=== PATIENT | female | born 1970 | race Caucasian/White ===

== ENCOUNTER 2017-06-24 16:28 | Inpatient (IN) | payer OTHER, MEDICARE ==
[~2017-06-24] VITALS: Ht 154.9 cm; Wt 61.7 kg
[2017-06-24 19:02] LABS: ABSOLUTE BASOPHIL COUNT 0.1 /CUMM (0.0-0.2); ABSOLUTE EOSINOPHIL COUNT 0.1 /CUMM (0.0-0.7); ABSOLUTE GRANULOCYTE CT 7.6 /CUMM (1.4-6.5); ABSOLUTE LYMPH COUNT 2.1 /CUMM (1.2-3.4); ABSOLUTE MONOCYTE COUNT 0.7 /CUMM (0.10-0.60); BASOPHIL % 0.8 % (0.0-2.0); EOSINOPHIL % 1.1 % (0-5); MEAN CORPUSCULAR HGB 30.8 PG (27.0-31.0); MEAN CORPUSCULAR HGB CONC 33.8 G/DL (33.0-37.0); MEAN CORPUSCULAR VOLUME 91.1 FL (81.0-99.0); PLATELET COUNT 294 /CUMM (130-400); RED BLOOD CELL CT 4.61 /CUMM (4.20-5.40); WHITE BLOOD CELL COUNT 10.6 /CUMM (4.8-10.8)
--- NOTE | 2017-06-24 20:43 | ED GENERAL ADULT ---
History of Present Illness General Chief Complaint: General Adult Stated Complaint: PT WAS SENT IN BY FOR [facility] AMS AND OTHER Source: patient, family (AUNT) Exam Limitations: no limitations Vital Signs & Intake/Output Vital Signs & Intake/Output Vital Signs Date Time Temp Pulse Resp B/P B/P Pulse O2 O2 Flow FiO2 Mean Ox Delivery Rate 06/25 1507 98.6 93 15 104/56 97 Room Air Room Air 06/25 1122 98.5 92 20 92/62 97 Room Air 06/25 0831 97.4 75 20 135/90 96 Room Air 06/25 0616 98.3 74 18 112/73 98 Room Air 06/25 0121 98.5 72 20 115/68 97 Room Air 06/24 2309 98 Room Air 06/24 1855 98.2 82 18 121/81 98 06/24 1704 98.4 94 18 137/85 951 Room Air ED Intake and Output 06/25 0000 06/24 1200 Intake Total 0 Output Total Balance 0 Intake, Oral 0 Patient 140 lb Weight Weight Reported by Patient Measurement Method Triage Note: SENT BY ENDOCRINE OFFICE FOR CHANGE IN MENTAL STATUS. STATES, "I CAN'T GET MY WORDS TOGETHER". "IM ADDICTED TO MORPHINE AND VALIUM". STATES SHE HAS CHRONIC BACK PAIN AND ADRENAL INSUFFICIENCY. AUNT WITH PT. VERY VAGUE ANSWERING QUESTIONS. Triage Nurses Notes Reviewed? yes Onset: Abrupt Duration: day(s): (1), changing over time, continues in ED Timing: recent history Injury Environment: home Severity: moderate, severe No Modifying Factors: none LMP (ages 10-50): unknown : No Patient currently breastfeeds: No HPI: 46-year-old female past medical history of adrenal insufficiency, hypothyroidism , opioid dependence, benzodiazepine dependence, chronic pain, chronic fatigue syndrome presents for evaluation of polysubstance use and altered mental status. Patient is requesting detox from benzodiazepines and opioids. She states that she has been prescribed these medications for chronic pain for years but she feels that she needs to stop them. She was seen at [facility] and [facility] but was discharged without any follow-up care according to her. Patient's aunt reports that today patient was very "out of it". She was lethargic and not responding to questions appropriately and she made comments that she wanted to hurt herself. No specific plan. Also patient's manager advanced notes that she was also not responding to questions appropriately and appeared very lethargic. SHE denies any suicidal or homicidal ideation. She states she has not overdosed on her medications. No hallucinations she's been taking her medications as directed. (Sandro Ferrara) Allergies Coded Allergies: Penicillins (Intermediate, RASH 06/25/17) Reconcile Medications Diazepam 10 MG TABLET 1 TAB PO TID ANXIETY (Reported) Duloxetine HCl 60 MG CAPSULE.DR 1 CAP PO DAILY MENTAL HEALTH (Reported) Hydrocortisone 10 MG TABLET 2 TAB PO DAILY UNKNOWN (Reported) Hydrocortisone 10 MG TABLET 1 TAB PO 1600 UNKNOWN (Reported) Levothyroxine Sodium 125 MCG TABLET 1 TAB PO DAILY AC THYROID (Reported) Methylphenidate HCl (Methylphenidate ER) 54 MG TAB.ER.24 1 TAB PO QAM MENTAL HEALTH (Reported) Morphine Sulfate (Morphine Sulfate ER) 30 MG TABLET.ER 1 TAB PO TID PAIN ( Reported) Trazodone HCl 100 MG TABLET 1 TAB PO QPM SLEEP (Reported) (Irina VILLA,Aj Powell) Past History Travel History Traveled to [place] past 21 day No Medical History Any Pertinent Medical History? see below for history Musculoskeletal: degen joint disease Psychiatric: opioid dependence Endocrine: adrenal insufficiency Surgical History Surgical History: non-contributory Psychosocial History What is your primary language Estonian Tobacco Use: Current Daily Use Daily Tobacco Use Amount/Type: => 5 Cigarettes daily ETOH Use: denies use Family History Hx Contributory? No (Sandro Ferrara) Review of Systems Review of Systems Constitutional: Reports: no symptoms. EENTM: Reports: no symptoms. Respiratory: Reports: no symptoms. Cardiovascular: Reports: no symptoms. GI: Reports: no symptoms. Genitourinary: Reports: no symptoms. Musculoskeletal: Reports: no symptoms. Skin: Reports: no symptoms. Neurological/Psychological: Reports: see HPI, anxiety, depressed, emotional problems. Hematologic/Endocrine: Reports: no symptoms. Immunologic/Allergic: Reports: no symptoms. All Other Systems: Reviewed and Negative (Sandro Ferrara) Physical Exam Physical Exam General Appearance: well developed/nourished, no apparent distress, alert, awake , lethargic, mild distress Head: atraumatic, normal appearance Eyes: Bilateral: normal appearance, PERRL, EOMI. Ears, Nose, Throat: normal pharynx, normal ENT inspection, hearing grossly normal Neck: normal inspection, supple, full range of motion Respiratory: normal breath sounds, chest non-tender, no respiratory distress, lungs clear Cardiovascular: regular rate/rhythm, normal peripheral pulses Peripheral Pulses: 2+ radial (R), 2+ radial (L) Gastrointestinal: soft, non-tender Back: normal inspection, normal range of motion, no vertebral tenderness Extremities: normal inspection, normal range of motion, no edema Neurologic/Psych: no motor/sensory deficits, awake, alert, oriented x 3, normal gait, normal mood/affect Skin: intact, normal color, warm/dry Lymphatic: no anterior cervical arcadio Core Measures ACS in differential dx? No CVA/TIA Diagnosis: No Sepsis Present: No Sepsis Focused Exam Completed? No (Shawn BAEZA,Sandro) Progress Differential Diagnoses I considered the following diagnoses in my evaluation of the patient: [Drug intoxication, drug withdrawal, medication side effects, sepsis, electrolyte abnormality, intracranial mass, intracranial hemorrhage, CVA, TIA, seizure disorder, adrenal insufficiency, hypothyroidism] Plan of Care: Orders Procedure Date/time Status Regular Diet 06/25 B Active Admit to inpatient psych 06/25 1543 Active Continuous Observation Monitor 06/24 2213 Active ED CRISIS PSYCH CONSULT 06/24 2213 Active Add-on Test (ER Only) 06/24 2132 Active TSH REFLEX 06/24 1849 Complete URINE DRUG SCREEN FOR ER ONLY 06/24 1702 Complete URINALYSIS 06/24 1702 Complete TROPONIN LEVEL 06/24 1702 Complete ETHANOL 06/24 1702 Complete COMPREHENSIVE METABOLIC PANEL 06/24 1702 Complete CBC WITHOUT DIFFERENTIAL 06/24 1702 Complete Current Medications Sig/Ras Start time Last Medication Dose Stop Time Status Admin Hydrocortisone 10 MG QPM 06/25 2200 UNVr (Hydrocortisone) Trazodone HCl 100 MG QPM 06/25 2200 UNVr (Desyrel) Diazepam 10 MG TID 06/25 1000 UNVr (Valium) Duloxetine HCl 60 MG DAILY 06/25 0900 AC 06/25 (Cymbalta) 1136 Hydrocortisone 20 MG DAILY 06/25 0900 AC 06/25 (Hydrocortisone) 1136 Levothyroxine Sodium 0.125 MG DAILY AC 06/25 0700 UNVr 06/25 (Synthroid) 0747 Laboratory Tests 06/24/172: Urine Opiates Screen > 4000.00 H, Methadone Screen 44, Barbiturate Screen < 60, Ur Phencyclidine Scrn < 6.00, Amphetamines Screen < 100, U Benzodiazepines Scrn > 800 H, Urine Cocaine Screen < 50, Urine Cannabis Screen < 5.00, Urine Color YEL, Urine Clarity CLEAR, Urine pH 6.5, Ur Specific [place] 1.020, Urine Protein NEG, Urine Ketones 15 H, Urine Nitrite NEG, Urine Bilirubin NEG, Urine Urobilinogen 0.2, Ur Leukocyte Esterase NEG, Ur Microscopic EXAM NOT REQUIRED, Urine Hemoglobin NEG, Urine Glucose NEG 06/24/17 1849: Anion Gap 11, Estimated GFR > 60, BUN/Creatinine Ratio 26.7 H, Glucose 101 H, Calcium 9.6, Total Bilirubin 0.4, AST 16, ALT 27, Alkaline Phosphatase 71, Troponin I < 0.01, Total Protein 7.0, Albumin 4.3, Globulin 2.7, Albumin/ Globulin Ratio 1.6, TSH &T3 &Free T4 Intrp 1.220, CBC w Diff NO MAN DIFF REQ, RBC 4.61, MCV 91.1, MCH 30.8, MCHC 33.8, RDW 13.0, MPV 8.0, Gran % 71.0, Lymphocytes % 20.2 L, Monocytes % 6.9, Eosinophils % 1.1, Basophils % 0.8, Absolute Granulocytes 7.6 H, Absolute Lymphocytes 2.1, Absolute Monocytes 0.7 H, Absolute Eosinophils 0.1, Absolute Basophils 0.1, Serum Alcohol < 10.0 Patient seen and evaluated. She is here requesting detox of opioids and benzos. On initial evaluation she appears lethargic and tearful requesting help. She does deny suicidal or homicidal ideation. Spoke with patient's aunts who reports that she made comments saying that she wanted to end her life and that she was depressed. Patient denies these comments. Spoke with Dr. Gandhi from endocrine's office sent her over. She reported that she was very lethargic out of it was not answering questions appropriately. We'll check basic labs including drug screen chest x-ray CT scan of the brain. Blood work is within normal limits. Urine drug screen shows high levels of opioids and benzodiazepines. As patient has been here being monitored she is starting to wake up and is alert and oriented 3 now. She is answering questions appropriately. Suspect the patient initially was intoxicated. She denies any suicidal or homicidal ideation however her aunt states that she did make these threats. Patient will be held over to see crisis. Medications ordered other than morphine. Signed out to Dr. Cast pending crisis. Diagnostic Imaging: Viewed by Me: CT Scan. Discussed w/RAD: CT Scan. Radiology Impression: ATIENT: MAK PONCE PRESENT AGE: 46 PATIENT ACCOUNT NO: [id number] : 68 LOCATION: ER ORDERING PHYSICIAN: Sandro BAEZA SERVICE DATE: 06/24/17 EXAM TYPE: CAT - CT HEAD WO IV CONTRAST EXAMINATION: CT HEAD WITHOUT CONTRAST CLINICAL INFORMATION: Altered mental status. COMPARISON: None TECHNIQUE: Contiguous axial imaging was performed from the skull base to vertex without intravenous administration of contrast. DLP: 621 mGy-cm FINDINGS: There is no evidence of acute intracranial hemorrhage or territorial infarction. No abnormal mass effect or midline shift is seen. Hartman to white matter differentiation is well preserved. No extra-axial fluid collections are identified. The ventricles are normal in size. There is no abnormal attenuation within the brain parenchyma. The osseous structures and soft tissues are normal. The mastoid air cells and visualized portions of the paranasal sinuses are well aerated. IMPRESSION: No acute intracranial pathology. DICTATED BY: Kermit Kendrick MD DATE/TIME DICTATED:06/24/172116 LYE TREATER:CROWELL DATE/TIME TRANSCRIBED:06/24/172116 CONFIDENTIAL, DO NOT COPY WITHOUT APPROPRIATE AUTHORIZATION. CXR Impression: PATIENT: MAK PONCE PRESENT AGE: 46 PATIENT ACCOUNT NO: [id number] : 68 LOCATION: ER ORDERING PHYSICIAN: Sandro BAEZA SERVICE DATE: 06/24/17 EXAM TYPE: RAD - XRY-CHEST XRAY, TWO VIEWS EXAMINATION: XR CHEST CLINICAL INFORMATION: Shortness of breath. Altered mental status. COMPARISON: None TECHNIQUE: 2 views of the chest were obtained. FINDINGS: No significant abnormality is noted involving the heart, lungs, mediastinum, bony thorax or soft tissues. IMPRESSION: Unremarkable examination. DICTATED BY: Parveen Lopez MD DATE/TIME DICTATED:06/24/172211 LYE TREATER:RADEmilianaCROWELL DATE/TIME TRANSCRIBED:06/24/172211 CONFIDENTIAL, DO NOT COPY WITHOUT APPROPRIATE AUTHORIZATION. <Electronically signed in Other Vendor System> Initial ED EKG: none (Sandro Ferrara) Differential Diagnoses I considered the following diagnoses in my evaluation of the patient: Hand-Off Endorsed To: Aj Arevalo MD Endorsed Time: 0700 Pending: consult (Serene VILLA,Moises Hawkins) Differential Diagnoses I considered the following diagnoses in my evaluation of the patient: Comments: 06/25/2017 3:43:49 PM patient signed out to me by Dr. Cast at shift [employer] exchange administrator. Patient will be admitted to inpatient psychiatry. (Aj Arevalo MD) Departure Departure Disposition: STILL A PATIENT Condition: Stable Clinical Impression Primary Impression: Drug intoxication Qualifiers: Complication of substance-induced condition: uncomplicated Qualified Code: F19.920 - Other psychoactive substance use, unspecified with intoxication, uncomplicated Secondary Impressions: Suicidal ideation Referrals: Tony Wei MD (PCP/Family) Departure Forms: Customer Survey General Discharge Information (Sandro Ferrara) PA/CHEMICAL ETCH OPERATOR Co-Sign Statement Statement: ED Attending supervision documentation- [] I saw and evaluated the patient. I have also reviewed all the pertinent lab results and diagnostic results. I agree with the findings and the plan of care as documented in the PA's/CHEMICAL ETCH OPERATOR's documentation. [X] I have reviewed the ED Record and agree with the PA's/CHEMICAL ETCH OPERATOR's documentation. [] Additions or exceptions (if any) to the PAs/CHEMICAL ETCH OPERATOR's note and plan are summarized below: [] (Serene VILLA,Moises Hawkins) Psych Admission Note Psychiatric Admission: I have seen and evaluated MAK PONCE. I have also reviewed all the pertinent lab results and diagnostic results. MAK PONCE will be admitted to our inpatient Psychiatric unit for treatment and care. (Aj Arevalo MD) Critical Care Note Critical Care Note Critical Care Time: non-applicable (Sandro Ferrara)
--- NOTE | 2017-06-24 21:24 | CT SCAN REPORT ---
EXAMINATION: CT HEAD WITHOUT CONTRAST CLINICAL INFORMATION: Altered mental status. COMPARISON: None TECHNIQUE: Contiguous axial imaging was performed from the skull base to vertex without intravenous administration of contrast. DLP: 621 mGy-cm FINDINGS: There is no evidence of acute intracranial hemorrhage or territorial infarction. No abnormal mass effect or midline shift is seen. Hartman to white matter differentiation is well preserved. No extra-axial fluid collections are identified. The ventricles are normal in size. There is no abnormal attenuation within the brain parenchyma. The osseous structures and soft tissues are normal. The mastoid air cells and visualized portions of the paranasal sinuses are well aerated. IMPRESSION: No acute intracranial pathology.
--- NOTE | 2017-06-24 22:16 | RADIOLOGY REPORT ---
EXAMINATION: XR CHEST CLINICAL INFORMATION: Shortness of breath. Altered mental status. COMPARISON: None TECHNIQUE: 2 views of the chest were obtained. FINDINGS: No significant abnormality is noted involving the heart, lungs, mediastinum, bony thorax or soft tissues. IMPRESSION: Unremarkable examination.
[2017-06-25] MEDS ORDERED: DULOXETINE HCL60 MG PO (08:24)
[2017-06-25] MEDS ORDERED: DIAZEPAM10 M1 PO (08:25)
[2017-06-25] MEDS ORDERED: TRAZODONE HCL100 M1 PO (08:25)
[2017-06-25] MEDS ORDERED: METHYLPHENIDATE54 M2 PO (08:25)
[2017-06-25] MEDS ORDERED: HYDROCORTISONE10 M2 PO ×2 (08:25→08:26)
[2017-06-25] MEDS ORDERED: MORPHINE SULFAT30 M3 PO (08:25)
[2017-06-25] MEDS ORDERED: LEVOTHYROXINE125 MCG PO (08:26)
--- NOTE | 2017-06-25 13:27 | ED PSYCH CRISIS CONSULTATION ---
Crisis Consult Basic Assessment Date of Consult: 06/25/17 Responsible Person/Accompanied By: Rosa Elena Vick, aunt Insurance Authorization: Insurance #1: Insurance name: MEDICARE A Phone number: Policy number: [id number] Group number: Authorization number: ED Provider: Patient's ED Provider: Sandro Ferrara Primary Care Physician: Patient's PCP: Tony Wei MD PCP's Current Psychiatrist: Sierra Barnhart MD Chief Complaint: Psychiatric Related Lethargic/depressed Present Illness: Patient is a 46 year old female, who was referred to [facility] by Mila who works with Dr. Gottlieb. When patient was seen for her appointment yesterday afternoon, patient was so lethargic that her aswers were unclear, and patient was unable to move from from one chair to another and required the help of several people. Patient reportedly had made some suicidal statements per patient's maternal aunt, who has been a major support for patient following the of patient's father and, now, patient's mother has been diagnosed with Alzheimer's and is not able to assist patient at all: in fact, patient's mother may need assistance from her mother, and it is doubtful that patient wou Patient's Address: [address] [place] [address] Other Phone Number: Who Do You Live With? Mother Family/Informants Interviewed: Rosa Elena Vick, aunt, Conner Vick. cousin Allergies - Coded Allergies: Penicillins (Intermediate, RASH 06/25/17) Current Medications - Scheduled Medications Diazepam 10 MG TABLET 1 TAB PO TID ANXIETY #90 (Reported) Entered as Reported by Alfredo Argueta on 06/25/17 0825 Duloxetine HCl 60 MG CAPSULE. 1 CAP PO DAILY MENTAL HEALTH #30 (Reported) Entered as Reported by Alfredo Argueta on 06/25/17 0824 Hydrocortisone 10 MG TABLET 2 TAB PO DAILY UNKNOWN #100 (Reported) Entered as Reported by Alfredo Argueta on 06/25/17 0825 Hydrocortisone 10 MG TABLET 1 TAB PO 1600 UNKNOWN (Reported) Entered as Reported by Aflredo Argueta on 06/25/17 0826 Levothyroxine Sodium 125 MCG TABLET 1 TAB PO DAILY AC THYROID #90 (Reported) Entered as Reported by Alfredo Argueta on 06/25/17 0826 Methylphenidate HCl (Methylphenidate ER) 54 MG TAB.ER.24 1 TAB PO QAM MENTAL HEALTH #30 (Reported) Entered as Reported by Alfredo Argueta on 06/25/17 0825 Morphine Sulfate (Morphine Sulfate ER) 30 MG TABLET.ER 1 TAB PO TID PAIN #90 (Reported) Entered as Reported by Alfredo Argueta on 06/25/17 0825 Trazodone HCl 100 MG TABLET 1 TAB PO QPM SLEEP #30 (Reported) Entered as Reported by Alfredo Argueta on 06/25/17824 Laboratory Results: Laboratory Tests 06/24/172031: Urine Opiates Screen > 4000.00 H, Methadone Screen 44, Barbiturate Screen < 60, Ur Phencyclidine Scrn < 6.00, Amphetamines Screen < 100, U Benzodiazepines Scrn > 800 H, Urine Cocaine Screen < 50, Urine Cannabis Screen < 5.00, Urine Color YEL, Urine Clarity CLEAR, Urine pH 6.5, Ur Specific [place] 1.020, Urine Protein NEG, Urine Ketones 15 H, Urine Nitrite NEG, Urine Bilirubin NEG, Urine Urobilinogen 0.2, Ur Leukocyte Esterase NEG, Ur Microscopic EXAM NOT REQUIRED, Urine Hemoglobin NEG, Urine Glucose NEG 06/24/17 1849: Anion Gap 11, Estimated GFR > 60, BUN/Creatinine Ratio 26.7 H, Glucose 101 H, Calcium 9.6, Total Bilirubin 0.4, AST 16, ALT 27, Alkaline Phosphatase 71, Troponin I < 0.01, Total Protein 7.0, Albumin 4.3, Globulin 2.7, Albumin/ Globulin Ratio 1.6, TSH &T3 &Free T4 Intrp 1.220, CBC w Diff NO MAN DIFF REQ, RBC 4.61, MCV 91.1, MCH 30.8, MCHC 33.8, RDW 13.0, MPV 8.0, Gran % 71.0, Lymphocytes % 20.2 L, Monocytes % 6.9, Eosinophils % 1.1, Basophils % 0.8, Absolute Granulocytes 7.6 H, Absolute Lymphocytes 2.1, Absolute Monocytes 0.7 H, Absolute Eosinophils 0.1, Absolute Basophils 0.1, Serum Alcohol < 10.0 Past History Past Medical History Musculoskeletal: degen joint disease Psychiatric: opioid dependence Endocrine: adrenal insufficiency Past Surgical History Surgical History: non-contributory Psychosocial History Strengths/Capabilities: patient has some family support has own apartment with mother states wants to get better Physical Limitations (Interventions): Patient has chronic back pain and renal insufficiecy Psychiatric Treatment History Psych Treatment Psychiatric Treatment Yes Inpatient Treatment Yes Outpatient Treatment Yes Location of Treatment Hosp in [place] in 1997; [facility] Reason for Treatment depression Dates of Treatment 1997 Response to Treatment fair to good Diagnosis by History: Depression Learning Disabled Substance Use/Abuse History Drug Use/Abuse Substances Used/Abused Yes Substance Used/Abused Benzodiazepines First Use 15 years ago Last Used today (prescribed) How much used/taken 10 m.g. 3x day How often treee times daily For how long 15 years Route of use p.o. Substance Abuse Treatment Substance Abuse Treatment Past Substance Abuse [place] No Current Mental Status Mental Status Orientation: Person, Place, Situation Affect: Blunted, Depressed, Sad Speech: Poverty, Pressured, Soft Neuro-vegetative: Concentration Poor, Energy Decreased Appearance Appearance- Dress/Hygiene: appears to be older than age disheveled in distress Behaviors Thought Process: WNL Thought Content: WNL Memory: WNL Insight: Fair SI/HI Risk Assessment Past Suicidal Ideation/Attempts Yes Current Suicidal Ideation/Att Yes Past Homicidal Ideation/Att: No Current Homicidal Ideation/Attempts No Degree of Intent: Thoughts/No Intent Danger To: Self Risk Factors: access to lethal means, chronic/serious med cond., high anxiety/ distress, history of suicide atmpts, SA/MH hospitalized, substance abuse, limited support Lethality Ratin PTSD Checklist PTSD Done? pt unable to participate ED Management Sitter: Yes Restraints: No DSM5/PS Stressors/Medical Prob Diagnosis' (DSM 5, Stressors, Medical): Major Deptressive Disorder, severe, recurrent Opiod Dependence (prescribed), severe Benzodiazapam Dependence, (prescribed), severe Unspecified Anxiety D/O F 41.1 ADHD Learning Disabled Current GAF: 22 Comments: Patient has lived in very confined, protective environment, but father's recent and mother's Alzheimer's have been very difficult. Departure Disposition Psych Medical Clearance Date: 06/25/17 Medically Cleared at: 1000 Time Started: 1110 Time Ended: 1215 Psychiatrist Consulted: SARABJIT Date Disposition Established: 06/25/17 Time Disposition Established: 1330 Plan for Disposition - Modality: Inpatient Psychiatry Facility: [facility] Follow-up Appt Date: 06/25/17 Rationale for Disposition: PATIENT AT RISK TO SELF. Has made suicidal statements, and is overwhelmed. States wants to decrease medications that make her more sedated Type of IP Admission: Voluntary Referrals Tony Wei MD (PCP/Family)
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
[2017-06-25 16:40] VITALS: BP 105/72
[2017-06-25 19:48] VITALS: BP 111/86
[2017-06-25 22:49] VITALS: BP 122/81
[2017-06-26 08:56] VITALS: BP 109/69
--- NOTE | 2017-06-26 11:31 | CPS PROVIDER INIT ASMT PSYCH ---
Psychiatric Admission Dentistry Professor's Note Reviewed: Yes Patient Seen and Examined: Yes Identifying Information: The patient is a 46-year-old white female Chief Complaint: The patient was referred to the emergency department by the office of Dr. bose, allegedly a maternal aunt reported that the patient had made some suicidal statements Reaction to Hospitalization: The patient was admitted voluntarily History of Present Illness Onset of Illness: The patient reported that she has been in treatment with Dr. Barnhart for several years. The patient reported that whether there were some recent changes in her medications. The patient had an appointment the same day that she was transferred to the emergency department with her primary care physician's office she reportedly was described as being lethargic and giving unclear answers and unable to move from one chair to another requiring the help of several people in the waiting area. And there were some allegations made that the patient made suicidal statements. The patient denied that she reported that her maternal aunt told her that is the only way to get help as to say that her suicidal. Maternal aunt is in her early 80s but she used to be a nurse in the past Circumstances Leading to Admission: The patient was transferred from the primary care physician's office to the ED for concerns about her lethargy unclear answers and some behaviors that were of concern. In addition to allegations by the maternal aunt that the patient made suicidal statements. Problem(s) Justifying Need for Admission: Allegations of suicidal statements, the patient denied that Past Psychiatric History Past Diagnosis(es)- if any: Patient has history of being diagnosed with major depressive disorder and anxiety disorder Past Precipitating Factors- if any: This was the patient's first inpatient psychiatric admission. Looks like the precipitating factors may be her numerous physical health issues and significant psychosocial stress at home , living with mother who has Alzheimer's disease - Include inpatient and outpatient treatment Treatment History: Patient has been in treatment with Dr. Barnhart in her private practice Patient denied history of previous inpatient psychiatric admissions and denied history of suicide attempts History of Suicide Attempts or Gestures Patient denied history of suicide attempts Substance Abuse History: The patient denied abusing her prescribed medications she seems to be reliable Allergies: Coded Allergies: Penicillins (Intermediate, RASH 06/25/17) Home Med List: Patient was on Valium 10 mg 3 times a day, Cymbalta 60 mg a day Morphine sulfate 30 mg 3 times a day - Include any medical condition(s) that may - impact the patient's recovery/remission Past History Medical History Neurological: NEUROPATHY EENT: NONE Cardiovascular: MITRAL VALVE PROLAPSE Respiratory: NONE Gastrointestinal: diverticulitis Hepatic: NONE Renal: urinary incontinence Musculoskeletal: chronic back pain, degen joint disease Psychiatric: anxiety, depression, opioid dependence, ADHD Endocrine: adrenal insufficiency, hypothyroidism, AMANDA'S DISEASE Blood Disorders: anemia Cancer(s): NONE 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/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: endometriosis History of MRSA: No History of VRE: No History of CDIFF: No Isolation History: Standard Surgical History Surgical History: non-contributory Psychiatric Family/Social Hx Family History Psychiatric Illness: The patient is adopted, however she reported that as far as she knows, her biological parents did not have psychiatric illnesses Substance Use: As far as she knows her biological parents did not have alcohol or substance abuse disorders Suicides: As far as she knows there were no suicides among her biological relatives Other Family History: Adopted Social History Living Situation: Lives with mother Significant Relationships (family/friends): Mother and aunt 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 - #1 Recognizing dangerous situations. - #2 Coping Skills. - #3 Basic information about quitting. Status of Tobacco Cessation Counseling: #1, #2 AND #3 Completed Cessation Med Status Nicotine Gum Ordered Alcohol Screening - ETOH screen POS if BAL >=80 or Audit-C>= M4/F3 Audit-C Score from Diag Assess: 1 Blood Alcohol Level: Laboratory Tests 06/24 1848 Toxicology Serum Alcohol (<10 MG/DL) < 10.0 Alcohol Use Screening Results: Neg per Audit C &/or BAL - If ETOH counseling indicated - the following topics are required. - #1 Express concern about the patient's - drinking at unhealthy levels, include informing - of national norms for moderate drinking: - men <= 14 drinks/week, max 4 drinks/occasion - women <= 7 drinks/week, max 3 drinks/occasion - #2 Providing feedback, including linking alcohol to - negative physical effects (liver injury, hypertension) - negative emotional effects (relationship problems and - depression) - negative occupational consequences (reduced work - performance) - #3 Advising the patient to abstain from alcohol or - to drink below national norms for moderate drinking - (as listed above). Status of ETOH Use Counseling: N/A B/C NO ETOH Use Metabolic Screening - Screen if on a Neuroleptic Medication - Metabolic screening should include: - Blood Pressure, BMI, Glucose or Hgb A1c, & a - Lipid profile from within the past 365 days. Metabolic Screening ([X]) Not Applicable, patient not on a neuroleptic. Exam and Plan Mental Status Examination Ambulation Status: The patient was lying in bed she reported that she has back ache Appearance: Unremarkable appearance Attitude towards examiner: Patient was calm and cooperative pleasant and friendly Psychomotor activity: Normal psychomotor activity Behavior: No abnormal behaviors Quality of speech: Normal speech, not pressured, not slurred Affect: Good range of affect Mood: He reported that she has been feeling depressed lately Suicidal Ideation: She denied that she was having thoughts of suicide Homicidal Ideation: She denied thoughts of violence or homicide Hallucinations: She denied hallucinations Paranoid/Delusional Material: She denied feeling paranoid, there were no delusions Difficulties with thought organization: There were no difficulties with thought organization Insight: Seems to have some insight Judgment: Good judgment Orientation: She was alert and oriented to time, place, and person. Cognition: She showed reasonable attention and concentration and information processing Memory Function: No deficits in her memory functions Estimate of intellectual functioning: Average Assets/Strengths Patient Identified Assets/Strengths: The patient is likable and honest Impression/Plan Impression and Plan: 46-year-old white female who was admitted because her aunt alleges that she was having thoughts of suicide. The patient denied that she was having thoughts of suicide but reported that her aunt told her that is the only way to get help. The patient was referred by her primary care physician's office because of concerns about her behavior - Include all active medical diagnosis that require tx DSM 5 Diagnosis(es): Major depressive disorder, recurrent, severe Unspecified anxiety disorder ADHD - Initial Tx Plan for Active Psych & Medical Conditions Treatment Plan: Inpatient psychiatric care with safety checks every 15 minutes Resume diazepam but reduce dose to 5 mg twice during the day and and 15 mg at bedtime Resume morphine sulfate but reduce dose to 50 mg 4 times a day Reduce Cymbalta to 40 mg daily and start Zoloft 50 mg daily Nursing assessments, vital signs, and patient education and Group therapy and milieu therapy and activity therapy Biopsychosocial assessment, collateral information, and aftercare planning Psychiatrist to evaluate patient's mental status daily and monitor medications daily - Factors that would help patient function - in a less restrictive setting. Factors: The patient will be discharged once she has 2 consecutive days without thoughts of suicide
[2017-06-26 12:02] VITALS: BP 122/78
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
--- NOTE | 2017-06-26 14:49 | History & Physical ---
General Information and HPI MD Statement: I have seen and personally examined MAK PONCE and documented this H&P. The patient is a 46 year old F who presented with a patient stated chief complaint of altered mental status/polysubstance abuse. Source of Information: patient, old records Exam Limitations: clinical condition History of Present Illness: The patient is a 46 yo female with h/o hypothyroidism, chronic fatigue syndrome, chronic back pain, adrenal insufficiency, opioid/benzo dependence & polysubstance abuse who presented in the [place] ED with altered mental status requesting detox from benzos & opioids. Her aunt stated that she was "out of it ". She had also been seen at both [place] and [facility]. She denied any suicidal ideations. At the time of my exam she had already met with psychiatry and social work and was concerned about receiving her hydrocortisone (was ordered). Allergies/Medications Allergies: Coded Allergies: Penicillins (Intermediate, RASH 06/25/17) Home Med list Diazepam 10 MG TABLET 1 TAB PO TID ANXIETY (Reported) Duloxetine HCl 60 MG CAPSULE.DR 1 CAP PO DAILY MENTAL HEALTH (Reported) Hydrocortisone 10 MG TABLET 2 TAB PO DAILY UNKNOWN (Reported) Hydrocortisone 10 MG TABLET 1 TAB PO 1600 UNKNOWN (Reported) Levothyroxine Sodium 125 MCG TABLET 1 TAB PO DAILY AC THYROID (Reported) Methylphenidate HCl (Methylphenidate ER) 54 MG TAB.ER.24 1 TAB PO QAM MENTAL HEALTH (Reported) Morphine Sulfate (Morphine Sulfate ER) 30 MG TABLET.ER 1 TAB PO TID PAIN ( Reported) Trazodone HCl 100 MG TABLET 1 TAB PO QPM SLEEP (Reported) Compliance With Home Meds: GOOD Past History Travel History Traveled to [place] past 21 day No Medical History Neurological: NONE, NEUROPATHY EENT: NONE Cardiovascular: NONE, MITRAL VALVE PROLAPSE Respiratory: NONE Gastrointestinal: diverticulitis Hepatic: NONE Renal: NONE, urinary incontinence Musculoskeletal: chronic back pain, degen joint disease Psychiatric: anxiety, depression, opioid dependence, substance abuse (benzo), ADHD Endocrine: adrenal insufficiency, hypothyroidism, AMANDA'S DISEASE Blood Disorders: anemia Cancer(s): NONE 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 FATHER, . Psychosocial History Where do you live? Home Primary Language: Albanian Smoking Status: Current Everyday Smoker (1/2 PPD) ETOH Use: denies use Functional Ability ADLs Independent: dressing, eating, toileting, bathing. Ambulation: independent Employment History Employment Disability Review of Systems Review of Systems Constitutional: Reports: malaise. EENTM: Denies: no symptoms. Cardiovascular: Denies: no symptoms. Respiratory: Denies: no symptoms. GI: Denies: no symptoms. Genitourinary: Reports: no symptoms (PT DESCRIBES INCONTINENCE), urgency. Musculoskeletal: Reports: back pain, joint pain. Skin: Denies: no symptoms. Neurological/Psychological: Reports: anxiety, depressed, emotional problems. Hematologic/Endocrine: Denies: no symptoms. Immunologic/Allergic: Denies: no symptoms. Exam & Diagnostic Data Last 24 Hrs of Vital Signs/I&O Vital Signs Date Time Temp Pulse Resp B/P B/P Pulse O2 O2 Flow FiO2 Mean Ox Delivery Rate 06/26 1202 74 122/78 06/26 0856 97.2 84 109/69 06/25 2249 78 122/81 06/25 1948 99.0 88 111/86 06/25 1640 98.0 92 105/72 Intake & Output 06/26 1600 06/26 0800 06/26 0000 Intake Total Output Total Balance Patient 136 lb Weight Physical Exam General Appearance Alert, Oriented X3, Cooperative, No Acute Distress Skin No Rashes, No Breakdown, No Significant Lesion HEENT Atraumatic, PERRLA, EOMI, Mucous Membr. moist/pink Neck Supple, No JVD, No thryomegaly, +2 Carotid Pulse wo Bruit, No LAD Cardiovascular Regular Rate, Normal S1, Normal S2, No Murmurs, Gallops, Rubs Lungs Clear to Auscultation, Normal Air Movement Abdomen Normal Bowel Sounds, Soft, No Tenderness, No Hepatospenomegaly, No Masses Neurological Exam Findings: Normal Gait, Normal Speech, Strength at 5/5 X4 Ext, Normal Tone, Sensation Intact, Cranial Nerves 3-12 NL, Reflexes 2+ Cranial Nerves II through XII: INTACT Extremities No Clubbing, No Cyanosis, No Edema, Normal Pulses, No Tenderness/ Swelling Vascular Normal Pulses, Pulses Symmetrical Last 24 Hrs of Labs/Db: Laboratory Tests 06/24/172031: Urine Opiates Screen > 4000.00 H, Methadone Screen 44, Barbiturate Screen < 60, Ur Phencyclidine Scrn < 6.00, Amphetamines Screen < 100, U Benzodiazepines Scrn > 800 H, Urine Cocaine Screen < 50, Urine Cannabis Screen < 5.00, Urine Color YEL, Urine Clarity CLEAR, Urine pH 6.5, Ur Specific Rulo 1.020, Urine Protein NEG, Urine Ketones 15 H, Urine Nitrite NEG, Urine Bilirubin NEG, Urine Urobilinogen 0.2, Ur Leukocyte Esterase NEG, Ur Microscopic EXAM NOT REQUIRED, Urine Hemoglobin NEG, Urine Glucose NEG 06/24/17 184: Anion Gap 11, Estimated GFR > 60, BUN/Creatinine Ratio 26.7 H, Glucose 101 H, Calcium 9.6, Total Bilirubin 0.4, AST 16, ALT 27, Alkaline Phosphatase 71, Troponin I < 0.01, Total Protein 7.0, Albumin 4.3, Globulin 2.7, Albumin/ Globulin Ratio 1.6, TSH &T3 &Free T4 Intrp 1.220, CBC w Diff NO MAN DIFF REQ, RBC 4.61, MCV 91.1, MCH 30.8, MCHC 33.8, RDW 13.0, MPV 8.0, Gran % 71.0, Lymphocytes % 20.2 L, Monocytes % 6.9, Eosinophils % 1.1, Basophils % 0.8, Absolute Granulocytes 7.6 H, Absolute Lymphocytes 2.1, Absolute Monocytes 0.7 H, Absolute Eosinophils 0.1, Absolute Basophils 0.1, Serum Alcohol < 10.0 Assessment/Plan Assessment: Impression/Plan: #Altered Mental Status- in patient with h/o polysubstance abuse and chronic pain. At the time of my exam she was alert & oriented. She war requesting detox. Family stated her behavior was erratic. Plan: Admit to [facility]Psychiatry. Meds as per psychiatry. #Benzo/Opioid Dependence- patient requesting detox. Plan: As per psychiatry. #Adrenal Insufficiency- chronic. Plan: Continue Hydrocortisone 20 mg qam/10 mg qpm. #Chronic Pain- has been on opioids and benzos. Plan: Continue Duloxetine - patient wants taper of Morphine. #Hypothyroid- on Levothyroxine. Plan: Continue Levothyroxine. #Anxiety/Depression- related to condition. Plan: As per psychiatry. As Ranked By This Provider Problem List: 1. Drug intoxication Qualifiers Complication of substance-induced condition: uncomplicated Qualified Code: F19.920 - Other psychoactive substance use, unspecified with intoxication, uncomplicated 2. Opioid dependence 3. Benzodiazepine dependence 4. Chronic back pain 5. Adrenal insufficiency 6. Depression 7. Anxiety Miscellaneous Miscellaneous Documentation Attending Case Discussed With: Juanjose VILLA,Ezequiel Primary Care Physician: Tony Wei MD Patient sees these Specialists NONE Level of Patient Care: Lg Consults Needed: Consulting Physician: NONE Attending MD Review Statement Attending Statement Attending MD Statement: examined this patient, reviewed EMR data (avail), discussed with nursing, amended to note Attending Assessment/Plan: As above.
[2017-06-26 16:03] VITALS: BP 120/81
--- NOTE | 2017-06-26 16:26 | SOCIAL WORKER PROG NOTE PSYCH ---
Social Work Progress Note Progress Note This engineering technical writer met with patient. She stated that she came to the hospital because she was concerned about the potential for interactions between her medications. Patient stated that she had seen Dr. Barnhart and has an appointment on 07/07/17. She stated that she and Dr. Barnhart had discussed [facility] IOP, which she was willing to attend. Patient denied SI/HI/AH/HV. She appeared to be guarded, provided vague responses to questions. Patient was agreeable to a family meeting with her aunt , Rosa Elena Vick. This engineering technical writer contacted Ros aElena by phone and a family meeting has been scheduled for 06/29/17 at 11am.
[2017-06-26 20:07] VITALS: BP 103/79
[2017-06-27 07:52] VITALS: BP 114/78
[2017-06-27 12:04] VITALS: BP 107/67
--- NOTE | 2017-06-27 13:45 | CP SOUTH PROGRESS NOTE PSYCH ---
Psych (Inpt) Progress Note Progress Note Include the following elements, when applicable: Involvement in the active treatment of the patient with behavioral observations of the patient and the patient's response to the treatment. Review of the ongoing treatment process in the context of the treatment plan. Indication of how multi-disciplinary staff members are carrying out the treatment plan. Plans for future interventions and recommendations for revision of the treatment plan. Liaison with other physicians/providers. Progress Note: Stated that she has an appt with Dr. Barnhart on the and pain management on the to adjust her medications I explained to her that Zoloft was ordered and med changes were likely discussed on admission and she said Monica never heard of someone being on two antidepressants and I explained that sometimes this happens as an adjunct to treatment if one is not working sufficiently, and that sometimes it takes time to cross taper them because they take weeks to work. She stated that she would try the Zoloft prescribed for now. She was vague about reason for admission and recent sx, minimizing things, stating that she is where she needs to be at [facility] and needs to get discharged on Thursday. No recent suicidal statements or thoughts. She stated that she hopes to return to take care of her mother. Is not close with her aunt but is hopeful about the family meeting on Thursday. MSE: short woman, fair grooming, pleasant and cooperative. Mildly anxious and some vagueness/superficial statements in her response style. Speech is normal. Affect is full and reactive, mood is neutral. Thought process is concrete and linear. Thought content is void of delusional material. No evidence of thoughts to harm self/others, no hallucinations. Insight is fair and judgment is fair. Cognition is grossly intact. A: 46 year old woman admitted with questionable suicidal statements, from her PCPs office due to lethargy and delirium looking picture. She is on high dose pain medications for chronic pain, but her goal is to be tapered off of them. She denies any suicidal thoughts or statements, stating that she needs to return home. Rec: continue evaluation, needs few day period of clinical stability prior to discharge planning, appears to be doing better overall. Accepted Zoloft with some education.
[2017-06-27 15:39] VITALS: BP 102/70
--- NOTE | 2017-06-27 19:35 | PN- Att Addend ---
Attending Addendum Attending Brief Note S: The patient requested to speak with me regarding timing of her steroid dose. She usually takes Hydrocortisone 20 mg qam and 10 mg qpm at 4 pm (order was entered for later dosing for evening dose). A:#Adrenal Insufficiency- as above - timing off for doses ordered by admitting MD. Plan: Will correct timing of later dose.
[2017-06-27 19:55] VITALS: BP 122/81
[2017-06-28 08:06] VITALS: BP 117/79
--- NOTE | 2017-06-28 11:30 | CP SOUTH PROGRESS NOTE PSYCH ---
Psych (Inpt) Progress Note Progress Note Include the following elements, when applicable: Involvement in the active treatment of the patient with behavioral observations of the patient and the patient's response to the treatment. Review of the ongoing treatment process in the context of the treatment plan. Indication of how multi-disciplinary staff members are carrying out the treatment plan. Plans for future interventions and recommendations for revision of the treatment plan. Liaison with other physicians/providers. Progress Note: Stated that she is doing well, no complaints and has been eating and sleeping well. She stated that her medication is "where it needs to be" and has had no issues with the zoloft. Is hopeful to get discharged early in the week and clinically appears to be doing well. MSE: short woman, fair grooming, pleasant. She has no psychomotor changes. She is not anxious and is well realted. She has regular speech. Her affect is full and reactive. Mood is good. Her thinking is goal oriented. No evidence of delusional material. Denies thoughts to harm self/others, no hallucinations. Insight is fair and judgment is fair. Cognition is grossly intact. A: 46 year old woman admitted with questionable suicidal statements, from her PCPs office due to lethargy and delirium looking picture. She is on high dose pain medications for chronic pain, but her goal is to be tapered off of them. She denies any suicidal thoughts or statements, stating that she needs to return home and continues to stabilize. Rec: continue current plan of care.
[2017-06-28 11:56] VITALS: BP 117/68
[2017-06-28 15:35] VITALS: BP 108/65
[2017-06-28 19:05] VITALS: BP 111/75
[2017-06-29 07:43] VITALS: BP 99/74
[2017-06-29 11:38] VITALS: BP 123/73
--- NOTE | 2017-06-29 13:05 | CP SOUTH PROGRESS NOTE PSYCH ---
Psych (Inpt) Progress Note Progress Note I reviewed Dr. Mila Isaac MD's notes for 06/27 and 06/28 The patient's progress, treatment, and aftercare plans were reviewed and the treatment team meeting this morning Vital Signs Date Time Temp Pulse B/P B/P Pulse O2 O2 Flow FiO2 06/29 1138 78 123/73 06/29 0743 97.6 73 99/74 06/28 1905 98.7 74 111/75 06/28 1535 78 108/65 Mental status examination: The patient seemed to be in good spirits today. She reported that she feels much better. She denied feeling hopeless and denied thinking of suicide. She was alert oriented to time place and person. Stated that she is doing well, no complaints and has been eating and sleeping well. She stated that her medication is "where it needs to be" and has had no issues with the zoloft. Is hopeful to get discharged and clinically appears to be doing well. pleasant. She has no psychomotor changes. She is not anxious and is well realted. She has regular speech. Her affect is full and reactive. Mood is good. Her thinking is goal oriented. No evidence of delusional material. Denies thoughts to harm self/others, no hallucinations. Insight is fair and judgment is fair. Cognition is grossly intact. A: A 46 year old woman admitted with questionable suicidal statements, from her PCP medications for chronic pain, but her goal is to be tapered off of them. She denies any suicidal thoughts or statements, stating that she needs to return home and continues to stabilize. Treatment plan update: continue current plan of care. Family meeting tomorrow with possible discharge after the family meeting
[2017-06-29 15:46] VITALS: BP 119/72
--- NOTE | 2017-06-29 17:32 | SOCIAL WORKER PROG NOTE PSYCH ---
Social Work Progress Note Progress Note This typewriter assembler met with patient. She described her mood as "fine" and denied SI/HI /AH/VH. Patient expressed eagerness to discharge and was agreeable to attending [facility]. Patient was informed that this typewriter assembler would schedule an IOP intake appointment. Patient stated that she has an appointment with her pain management provider, Dr. Ku, on 07/08/17. She stated that she would contact her PCP after discharge to schedule an appointment with him, Dr. Peoples. Patient stated that she did not need any additional appointments/ referrals and was not interested in a visitng nurse. Patient was informed that the family meeting with her aunt and cousin were moved to tomorrow, 06/30/17, at 11am due to today's bad weather. Patient's aunt was informed of anticipated discharge for tomorrow. This typewriter assembler spoke with Raquel Garcia at [facility] and an intake has been scheduled for 06/30/17 at 2pm.
[2017-06-29 19:59] VITALS: BP 114/72
[2017-06-30 07:49] VITALS: BP 101/59
[2017-06-30 12:13] VITALS: BP 119/77
--- NOTE | 2017-06-30 13:16 | CP SOUTH PROGRESS NOTE PSYCH ---
Psych (Inpt) Progress Note Progress Note The patient's progress, treatment, and aftercare plans were reviewed and the treatment team meeting this morning Vital Signs Date Time Temp Pulse Resp B/P B/P Pulse O2 O2 Flow FiO2 Mean Ox Delivery Rate 06/30 1213 80 119/77 06/30 0749 98.9 76 101/59 06/29 1958 97.8 80 114/72 06/29 1546 81 119/72 Mental Status Examination: The patient seemed to be in good spirits today until we had the family meeting. He will on seem to be overbearing and a bit controlling, and somewhat intrusive. I feel that the patient was justified in feeling irritated during the family meeting She denied feeling hopeless and denied thinking of suicide. She was alert oriented to time, place, and person. Stated that she is doing well, no complaints and has been eating and sleeping well. She was pleasant. She has no psychomotor changes. She is not anxious and is well realted. She has regular speech. Her affect is full and reactive. Mood is good. Her thinking is goal oriented. No evidence of delusional material. Denies thoughts to harm self/others, no hallucinations. Insight is fair and judgment is fair. Cognition is grossly intact. A: A 46 year old woman admitted with questionable suicidal statements, from her PCP medications for chronic pain, but her goal is to be tapered off of them. She denies any suicidal thoughts or statements, stating that she needs to return home and continues to stabilize. Treatment plan update: Discharge home with plan to follow up with OPS at [facility]
--- NOTE | 2017-06-30 13:16 | DISCHARGE SUMMARY REPORT-PSYCH ---
Visit Information Visit Dates/Diagnosis' Admission Date: 06/25/17 Discharge Date: 06/30/17 Reason for Admission: Allegedly thoughts of suicide, the patient denied that Hospital Course Course Allergies: Coded Allergies: Penicillins (Intermediate, RASH 06/25/17) gluten (GI DISTURBANCE;HEADACHE 06/27/17) Discharge HBIPS - Tobacco Use Treatment Offered - EtOH/Drug Use D/O Treatment Offered Metabolic Screening - Screen if on a Neuroleptic Medication - Metabolic screening should include: - Blood Pressure, BMI, Glucose or Hgb A1c, & a - Lipid profile from within the past 365 days. Discharge Instructions General Discharge Information Referrals Ordered Referrals Provider Referral 06/30/17 For Groups: [[facility]] [facility] [address], [place] [phone] IOP intake appointment: Friday, June 30, 2017 at 2pm Provider Referral 07/01/17 For Groups: [Sm[facility]essation Group] [facility] [address] [phone] Group meets every other Thursday at 4pm Next group: 07/01/17, at 4pm
[2017-06-30] MEDS ORDERED: CYCLOBENZAPRINE10 M1 PO (13:30)
[2017-06-30] MEDS ORDERED: MORPHINE SULFAT15 M4 PO (13:31)
[2017-06-30] MEDS ORDERED: ZOLOFT50 M1 PO (13:33)
[2017-06-30] MEDS ORDERED: DULOXETINE HCL20 MG PO (13:33)
[2017-06-30] MEDS ORDERED: VALIUM5 M2 PO (13:35)
[2017-06-30] MEDS ORDERED: TRAZODONE HCL50 M1 PO (13:35)
--- NOTE | 2017-06-30 13:38 | Patient Discharge Instructions ---
Psych Discharge Inst General Discharge Information Reason for Admission: Allegedly thoughts of suicide, the patient denied that Psy Discharge Primary Diag+ MDD Unspecified Anxiety Disor Psy Discharge Secondary Diag+ Learning Disorder Summary Tests/Major Procedures Lab TSH &T3 &Free T4 Intrp 1.220 uIU/mL 06/24/17 1849 Studies Pending at DC: None Patient Instructions Contact Information Your Psychiatrist on [facility] was Ezequiel Sow MD * If you are experiencing an emergency related to this hospitalization, please call [phone] to contact the treating psychiatrist or the psychiatrist-on- call. * To Request a copy of your medical records, please contact the Medical Records Department at [phone]. * To request results of studies pending at the time of discharge, please call [phone]. * Continue your Medications until directed to stop by your Healthcare provider. General Medication Information Please continue to take your new medications and your continued home medications , unless otherwise indicated on your discharge medication list, or unless directed by your MD or CORPORATE COUNSEL to stop them. Special Instructions Diet Regular Activity Normal - Tobacco Use Treatment Offered Post DC Medications Offered: Refused Tob Medication Tx Post DC Tobacco Treatment Plan: Refused Tobacco Tx Pgm - EtOH/Drug Use D/O Treatment Offered Post DC Medications Offered: NA-No EtOH/Drug Use D/O Post DC EtOH/SubAbuse TX Plan: NA-No EtOH/Drug Use D/O Metabolic Screening ([X]) Not Applicable, patient not on a neuroleptic. Advance Directives Does the Patient have Medical Advance Directives No/Refused further info Does Pt have Psychiatric Advance Directives? No/Refused further info Does Patient have a Designated Surrogate Decision Maker: No Information About Psychiatric Advance Directives Provided? Refused Discharge Plan Post Hospital Treatment Plan: OPS
[2017-06-30 16:11] VITALS: BP 118/72
--- NOTE | 2017-06-30 18:14 | SOCIAL WORKER PROG NOTE PSYCH ---
Social Work Progress Note Progress Note Dr. Sow and this quality analyst/technical writer met with patient, her cousin, Sinan and her aunt, Rosa Elena, for a family meeting. Patient's family discussed the impact on the patient related to the of her father and her mother's illness in that her primary support system "crumbled." Conservatorship was discussed, to which patient was in agreement. Patient's cousin and aunt stated that they would explore voluntary conservatorship as an option. Discharge plans were also discussed. Family members expressed concern about the patient discharging home today due to her mother's home health services currently in transition to a new service and the tension between the patient and the current service. Patient maintained that she wants to discharge today and waiting until tomorrow is not an option. In regard to treatment, due to lack of transportation, patient and her family did not feel that IOP would be possible and was agreeable to [facility] for medication management and outpatient services.
== END 2017-06-30 18:42 | DRG 881 ==
LOC: ERH 16:28 → CP SOUTH 06-25 15:43 → ERHI 06-25 15:43 → CP SOUTH 06-25 16:10
PROVIDERS: Physician Assistant Medical
DX: F32.9 Major depressive disorder, single episode, unspecified (principal); F41.9 Anxiety disorder, unspecified; F81.9 Developmental disorder of scholastic skills, unspecified
CPT/HCPCS: 71046; 80307; 81003; G0480; J3360

== ENCOUNTER 2017-08-07 18:19 | Inpatient (IN) | payer OTHER, MEDICARE ==
[~2017-08-07] VITALS: Ht 154.9 cm; Wt 58.1 kg
[~2017-08-07 18:19] MED LIST: CYCLOBENZAPRINE10 M1 PO; DIAZEPAM10 M1 PO; DULOXETINE HCL20 MG PO; DULOXETINE HCL60 MG PO; HYDROCORTISONE10 M2 PO; LEVOTHYROXINE125 MCG PO; METHYLPHENIDATE54 M2 PO; MORPHINE SULFAT15 M4 PO; MORPHINE SULFAT30 M3 PO; TRAZODONE HCL100 M1 PO; TRAZODONE HCL50 M1 PO; VALIUM5 M2 PO; ZOLOFT50 M1 PO
[2017-08-07 19:04] LABS: ABSOLUTE BASOPHIL COUNT 0 /CUMM (0.0-0.2); ABSOLUTE EOSINOPHIL COUNT 0 /CUMM (0.0-0.7); ABSOLUTE GRANULOCYTE CT 7.7 /CUMM (1.4-6.5); ABSOLUTE LYMPH COUNT 1.2 /CUMM (1.2-3.4); ABSOLUTE MONOCYTE COUNT 0.6 /CUMM (0.10-0.60); BASOPHIL % 0.2 % (0.0-2.0); EOSINOPHIL % 0.2 % (0-5); GRANULOCYTE % 81.2 % (42.2-75.2); HEMATOCRIT 42.9 % (37-47); MEAN CORPUSCULAR HGB 31.2 PG (27.0-31.0); MEAN CORPUSCULAR HGB CONC 34.6 G/DL (33.0-37.0); MEAN CORPUSCULAR VOLUME 90.1 FL (81.0-99.0); MEAN PLATELET VOLUME 8.6 FL (7.4-10.4); PLATELET COUNT 282 /CUMM (130-400); RBC DISTRIBUTION WIDTH 12.9 % (11.5-14.5); RED BLOOD CELL CT 4.77 /CUMM (4.20-5.40); WHITE BLOOD CELL COUNT 9.4 /CUMM (4.8-10.8)
--- NOTE | 2017-08-07 19:16 | ED GENERAL ADULT ---
See Addendum History of Present Illness General Chief Complaint: ETOH/Drug Related Complaint Stated Complaint: BIBA +NAUSEA Source: patient Exam Limitations: no limitations Vital Signs & Intake/Output Vital Signs & Intake/Output Vital Signs Date Time Temp Pulse Resp B/P B/P Pulse O2 O2 Flow FiO2 Mean Ox Delivery Rate 08/08 0130 98.6 70 20 117/66 08/08 0124 98.6 70 20 117/66 97 Room Air 08/071 Room Air 08/07 2030 98.5 72 16 116/69 97 Room Air 08/07 1824 98.3 99 18 129/77 97 Room Air Room Air ED Intake and Output 08/08 0000 08/07 1200 Intake Total 1000 Output Total Balance 1000 Intake, IV 1000 Patient 130 lb Weight Weight Estimated Measurement Method Allergies Coded Allergies: Penicillins (Intermediate, RASH 06/25/17) gluten (GI DISTURBANCE;HEADACHE 06/27/17) Reconcile Medications Cyclobenzaprine HCl 10 MG TABLET 10 MG PO Q6P PRN back spasms Diazepam (Valium) 5 MG TABLET 1 TAB PO SEE ADMIN CRITERIA anxiety 1 tab in AM, 1 tab in afternoon and 3 tabs at bedtime Duloxetine HCl 20 MG CAPSULE.DR 2 CAP PO DAILY depression/anxiety Hydrocortisone 10 MG TABLET 2 TAB PO DAILY UNKNOWN (Reported) Hydrocortisone 10 MG TABLET 1 TAB PO 1600 UNKNOWN (Reported) Levothyroxine Sodium 125 MCG TABLET 1 TAB PO DAILY AC THYROID (Reported) Morphine Sulfate 15 MG TABLET 15 MG PO FOUR TIMES A DAY pain Sertraline HCl (Zoloft) 50 MG TABLET 1 TAB PO DAILY anxiety/depression Trazodone HCl 50 MG TABLET 50 MG PO QPM insomnia Triage Note: СВЕТЛАНАA FROM HOME FOR WITHDRAWL SYMPTOMS. PT STATES SHE WAS ADMITTED TO [facility] ABOUT A MONTH AGO FOR ADDICTION TO MORPHINE AND VALIUM. WAS IN HOSPITAL A WEEK. HAS BEEN TAPERING DOWN ON BOTH MORPHINE AND VALIUM SINCE THEN. STATES SHE USED TO TAKE 40MG VALIUM A DAY AND HAS CUT DOWN TO 20MG A DAY-STATES SHE STOPPED TAKING ALL VALIUM ABOUT 3 DAYS AGO. CONTINUES TO TAKE MORPHINE ER 30MG BID. PT AWAKE ALERT, ORIENTED. STATES SHE FEELS VERY ANXIOUS, NAUSEATED, REPORTS POOR APPETITE AND VOMITING 4 TIMES TODAY. STATES HER STOMACH HURTS. Triage Nurses Notes Reviewed? yes Onset: Gradual Duration: day(s): Timing: recent history Injury Environment: home Severity: mild, moderate Modifying Factors: Improves With: medication. Associated Symptoms: anxiety HPI: 46 yo woman presents with weakness and anxiety. She notes, "I haven't taken my diazepam in 2 days... I am in withdrawal... I can 't eat or drink or take care of myself... My doctor is cutting down my pain medications and it isn't working... I keep going into withdrawal symptoms." She denies SI/HI/hallucinations, illicit drug or alcohol use. She is otherwise well. Past History Travel History Traveled to [place] past 21 day No Medical History Any Pertinent Medical History? 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 FATHER, . Hx Contributory? No Review of Systems Review of Systems Constitutional: Reports: no symptoms. EENTM: Reports: no symptoms. Respiratory: Reports: no symptoms. Cardiovascular: Reports: no symptoms. GI: Reports: no symptoms. Genitourinary: Reports: no symptoms. Musculoskeletal: Reports: no symptoms. Skin: Reports: no symptoms. Neurological/Psychological: Reports: no symptoms. Hematologic/Endocrine: Reports: no symptoms. Immunologic/Allergic: Reports: no symptoms. All Other Systems: Reviewed and Negative Physical Exam Physical Exam General Appearance: well developed/nourished, no apparent distress Comments: Physical Exam Physical Exam General Appearance: well developed/nourished, no apparent distress Head: atraumatic, normal appearance Eyes: Bilateral: normal appearance. Ears, Nose, Throat: normal pharynx, normal ENT inspection Neck: normal inspection, supple, full range of motion Respiratory: normal breath sounds, chest non-tender, no respiratory distress, quiet respiration, lungs clear Cardiovascular: regular rate/rhythm Gastrointestinal: normal bowel sounds, soft, non-tender, no organomegaly Back: normal inspection, normal range of motion Extremities: normal inspection, normal capillary refill, normal range of motion, no edema Neurologic/Psych: no motor/sensory deficits, awake, alert, oriented x 3 Skin: intact, normal color, warm/dry Core Measures ACS in differential dx? No CVA/TIA Diagnosis: No Sepsis Present: No Sepsis Focused Exam Completed? No Progress Differential Diagnoses I considered the following diagnoses in my evaluation of the patient: electrolyte abnormality, depression, vs other. Plan of Care: Orders Procedure Date/time Status Regular Diet 08/08 B Active Add-on Test (ER Only) 08/07 2158 Active PT Evaluate & Treat 08/07 2149 Active ED CRISIS PSYCH CONSULT 08/07 2149 Active CASE MANAGEMENT CONSULT 08/07 2149 Active THYROID STIMULATING HORMONE 08/07 184 Complete CIWA 08/07 183 Active URINE DRUG SCREEN FOR ER ONLY 08/07 183 Complete LIPASE 08/07 183 Complete HUMAN BETA HCG SCREEN 08/07 183 Complete ETHANOL 08/07 183 Complete COMPREHENSIVE METABOLIC PANEL 08/07 183 Complete CBC WITHOUT DIFFERENTIAL 08/07 183 Complete AMYLASE 08/07 183 Complete Current Medications Sig/Ras Start time Last Medication Dose Stop Time Status Admin Diazepam 15 MG QPM 08/08 2100 UNVr (Valium) Hydrocortisone 10 MG 1600 08/08 1600 UNVr (Hydrocortisone) Diazepam 5 MG DAILY 08/08 09 UNVr (Valium) Duloxetine HCl 40 MG DAILY 08/08 09 UNVr (Cymbalta) Hydrocortisone 20 MG DAILY 08/08 09 UNVr (Hydrocortisone) Morphine Sulfate 15 MG BID 08/08 0900 UNVr (Ms Contin) Levothyroxine Sodium 0.125 MG DAILY AC 08/08 0700 CANr (Synthroid) Laboratory Tests 08/07/171843: Serum Alcohol < 10.0 08/07/171843: Anion Gap 15, Estimated GFR > 60, BUN/Creatinine Ratio 23.3, Glucose 114 H, Calcium 9.9, Total Bilirubin 0.5, AST 23, ALT 37, Alkaline Phosphatase 61, Total Protein 6.8, Albumin 4.0, Globulin 2.8, Albumin/Globulin Ratio 1.4, Amylase 39, Lipase 48, TSH 0.058 L, Total Beta HCG NEGATIVE, CBC w Diff NO MAN DIFF REQ, RBC 4.77, MCV 90.1, MCH 31.2 H, MCHC 34.6, RDW 12.9, MPV 8.6, Gran % 81.2 H, Lymphocytes % 12.3 L, Monocytes % 6.1, Eosinophils % 0.2, Basophils % 0.2, Absolute Granulocytes 7.7 H, Absolute Lymphocytes 1.2, Absolute Monocytes 0.6, Absolute Eosinophils 0, Absolute Basophils 0, Urine Opiates Screen > 4000.00 H, Methadone Screen 85, Barbiturate Screen < 60, Ur Phencyclidine Scrn < 6.00, Amphetamines Screen < 100, U Benzodiazepines Scrn > 800 H, Urine Cocaine Screen < 50, Urine Cannabis Screen < 5.00 Initial ED EKG: none Hand-Off Endorsed To: Aj Ronquillo DO Endorsed Time: 0700 Pending: consult Departure Departure Disposition: STILL A PATIENT Condition: Stable Clinical Impression Primary Impression: Depression Secondary Impressions: Weakness Referrals: Tony Wei MD (PCP/Family) Departure Forms: Customer Survey General Discharge Information Comments 08/07/17, 21:59... discussed at length with patient... she states that she needs psychiatric admission... "I have severe anxiety." pt to be evaluated in the AM. 08/07/17, 3:24am... discussed again with patient at RN request... pt is in accord with evaluation by nargis in AM. Critical Care Note Critical Care Note Critical Care Time: 30-74 min
[2017-08-08] VITALS (11 sets, daily range): BP systolic 106–139; BP diastolic 53–85
--- NOTE | 2017-08-08 09:35 | ED PSYCH CRISIS CONSULTATION ---
See Addendum Crisis Consult Basic Assessment Date of Consult: 08/08/17 Responsible Person/Accompanied By: ABDOULAYE Insurance Authorization: Insurance #1: Insurance name: MEDICARE A Phone number: Policy number: [id number] Group number: Authorization number: ED Provider: Patient's ED Provider: Aj Ronquillo DO Primary Care Physician: Patient's PCP: Tony Wei MD PCP's Current Psychiatrist: Dr. Bekah Hernandez OPS Chief Complaint: Psychiatric Related Complaint Patient's Quote: "I'm out of my skin with panic." Present Illness: The patient is a 46 year old, single female, presenting to the ED with increased symptoms of depression and anxiety. The patient reports that she was inpatient on [facility] at [place] in June of 2017 and has been followed by Dr. Godfrey in OPS at [place]. The patient reports that they are working on medication changes and decreasing her Diazepam, noting that she has not been able to function. She reports that she has been experiencing extreme anxiety with panic attacks. She states that she is feeling depressed re: her mother being diagnosed with Alzheimer and is not able to help care for her. She states that a visiting nurse agency comes into the home and she has not been happy with the care that they are providing. She rates her depression a 7 out of 10 and her anxiety a 10 out of 10, 10 being the most severe. She denies any current SI or HI. She appears to be disheveled and unkempt and states that she is not able to care for herself. She reports that her mental health symptoms are "debilitating," and she is not able to eat, sleep, drive or function. She states that she is feeling very hopeless and sometimes helpless. She also has multiple medical issues including Levy Disease, Chronic Fatigue Syndrome and Chronic pain from breaking her back years ago. She has been on Disability for the last 12 years. She denies any current or history of drug or alcohol abuse. She denies any history of trauma or abuse. Per the records she has missed some outpatient groups. She is not sure what would be helpful, however states that she is not able to return home with these symptoms. SW left a message for her cousin, Victor Hugo Vick ([phone]), and will await a call back, Patient's Address: [address] [place] [address] Other Phone Number: Who Do You Live With? Mother Family/Informants Interviewed: Message left for her cousin, Victor Hugo Vick- [phone] Allergies - Coded Allergies: Penicillins (Intermediate, RASH 06/25/17) gluten (GI DISTURBANCE;HEADACHE 06/27/17) Current Medications - Scheduled Medications Diazepam (Valium) 5 MG TABLET 1 TAB PO SEE ADMIN CRITERIA anxiety #75 TAB Prescribed by Ezequiel Sow MD on 06/30/17 Duloxetine HCl 20 MG CAPSULE.DR 2 CAP PO DAILY depression/anxiety #30 CAP Prescribed by Ezequiel Sow MD on 06/30/17 Hydrocortisone 10 MG TABLET 2 TAB PO DAILY UNKNOWN #100 (Reported) Entered as Reported by Alfredo Argueta on 06/25/17 0825 Hydrocortisone 10 MG TABLET 1 TAB PO 1600 UNKNOWN (Reported) Entered as Reported by Alfredo Argueta on 06/25/17 0826 Levothyroxine Sodium 125 MCG TABLET 1 TAB PO DAILY AC THYROID #90 (Reported) Entered as Reported by Alfredo Argueta on 06/25/17 0826 Morphine Sulfate 15 MG TABLET 15 MG PO FOUR TIMES A DAY pain #60 TAB Prescribed by Ezequiel Sow MD on 06/30/17 Sertraline HCl (Zoloft) 50 MG TABLET 1 TAB PO DAILY anxiety/depression #30 TAB Prescribed by Ezequiel Sow MD on 06/30/17 Trazodone HCl 50 MG TABLET 50 MG PO QPM insomnia #15 TAB Prescribed by Ezequiel Sow MD on 06/30/17 Scheduled PRN Medications Cyclobenzaprine HCl 10 MG TABLET 10 MG PO Q6P PRN back spasms #30 TAB Prescribed by Ezequiel Sow MD on 06/30/17 Laboratory Results: Laboratory Tests 08/07/171843: Serum Alcohol < 10.0 08/07/171843: Anion Gap 15, Estimated GFR > 60, BUN/Creatinine Ratio 23.3, Glucose 114 H, Calcium 9.9, Total Bilirubin 0.5, AST 23, ALT 37, Alkaline Phosphatase 61, Total Protein 6.8, Albumin 4.0, Globulin 2.8, Albumin/Globulin Ratio 1.4, Amylase 39, Lipase 48, TSH 0.058 L, Total Beta HCG NEGATIVE, CBC w Diff NO MAN DIFF REQ, RBC 4.77, MCV 90.1, MCH 31.2 H, MCHC 34.6, RDW 12.9, MPV 8.6, Gran % 81.2 H, Lymphocytes % 12.3 L, Monocytes % 6.1, Eosinophils % 0.2, Basophils % 0.2, Absolute Granulocytes 7.7 H, Absolute Lymphocytes 1.2, Absolute Monocytes 0.6, Absolute Eosinophils 0, Absolute Basophils 0, Urine Opiates Screen > 4000.00 H, Methadone Screen 85, Barbiturate Screen < 60, Ur Phencyclidine Scrn < 6.00, Amphetamines Screen < 100, U Benzodiazepines Scrn > 800 H, Urine Cocaine Screen < 50, Urine Cannabis Screen < 5.00 Past History Past Medical History Neurological: NONE, NEUROPATHY EENT: NONE Cardiovascular: NONE, MITRAL VALVE PROLAPSE Respiratory: NONE Gastrointestinal: diverticulitis Hepatic: NONE Renal: NONE, urinary incontinence Musculoskeletal: chronic back pain, degen joint disease Psychiatric: anxiety, depression, opioid dependence, substance abuse (benzo), ADHD Endocrine: adrenal insufficiency, hypothyroidism, AMANDA'S DISEASE Blood Disorders: anemia 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 Reason for Treatment Depression and anxiety Dates of Treatment [facility] in June 2017, current with OPS and IP in [place] in 1997 Diagnosis by History: Depression Learning Disabled Substance Use/Abuse History Drug Use/Abuse Substances Used/Abused No (Pt. denies) First Use N/A Last Used N/A How much used/taken N/A How often N/A For how long N/A Route of use N/A Substance Abuse Treatment Substance Abuse Treatment Past Substance Abuse [place] No (Pt. denies) Inpatient Treatment No Outpatient Treatment No Location of Treatment N/A Reason for Treatment N/A Dates of Treatment N/A Response to Treatment N/A Comments: N/A Current Mental Status Mental Status Orientation: Person, Place, Situation Affect: Anxious, Depressed Speech: Pressured Neuro-vegetative: Appetite Decreased, Helpless, Sleep Disturbance, Hopeless Appearance Appearance- Dress/Hygiene: The patient was sitting in the [place], in hospital pant and her own t-shirt. She appears disheveled and unkempt. Behaviors Thought Process: WNL Thought Content: Perseverating on her extreme anxiety. Memory: WNL Insight: Fair SI/HI Risk Assessment Past Suicidal Ideation/Attempts Yes Current Suicidal Ideation/Att No Past Homicidal Ideation/Att: No Current Homicidal Ideation/Attempts No Degree of Intent: She denies and current or history of SI or HI, however per notes she does have a history of making suicidal comments to her family. Gravely Disabled: Symptoms of depression and anxiety- she states that she is not able to function or complete activities of daily living. Risk Factors: high anxiety/distress, history of suicide atmpts, SA/MH hospitalized, limited support Lethality Ratin PTSD Checklist PTSD Done? patient declined (Denies trauma or abuse hx.) ED Management Sitter: Yes Restraints: No DSM5/PS Stressors/Medical Prob Diagnosis' (DSM 5, Stressors, Medical): F32.9 Unspecified Depressive Disorder F41.9 Unspecified Anxiety Disorder Medical: Addisons Disease, Chronic back pain, Chronic Fatique Syndrome. Stressors: Chronic medical issues, father , Mother diagnosed with Alzheimer's Disease Current GAF: 30 Comments: N/A Departure Disposition Psych Medical Clearance Date: 08/08/17 Medically Cleared at: 0800 Time Started: 0800 Time Ended: 899 Psychiatrist Consulted: Sierra Barnhart MD Date Disposition Established: 08/08/17 Time Disposition Established: 09 Plan for Disposition - Modality: Inpatient Psychiatry Facility: [facility] Rationale for Disposition: The patient presents with worsening symptoms of depression and anxiety, which the patient states are "debilitating," and that she is not able to leave her house, eat, sleep or complete activities of daily living. She states that she is feeling hopeless and sometimes helpless. Case discussed with Dr. Barnhart, who has known the patient for years and finds her to be gravely disabled by her symptoms and will admit her to [facility] for symptom stabilization and medication evaluation. Type of IP Admission: Voluntary Additional Instructions: N/A Referrals Tony Wei MD (PCP/Family)
--- NOTE | 2017-08-08 10:06 | IP CRISIS DIAG ASSESS PSYCH ---
Diagnostic Assessment Basic Assessment Insurance Authorization: Insurance #1: Insurance name: MEDICARE A Phone number: Policy number: [id number] Group number: Authorization number: 1. The patient has Medicare as her primary insurance and a prior authorization is not required. 2. The patient has [employer] as a secondary inusrance and no prior authoirzation is required. Primary Care Physician: Patient's PCP: Tony Wei MD PCP's Patient's Quote: "I'm out of my skin with panic." Present Illness: The patient is a 46 year old, female, presenting to the ED with increased symptoms of depression and anxiety. The patient reports that she was inpatient on CPS at [facility] in June of 2017 and has been followed by Dr. Godfrey in OPS at [facility]. The patient reports that they are working on medication changes and decreasing her Diazepam, noting that she has not been able to function. She reports that she has been experiencing extreme anxiety with panic attacks. She states that she is feeling depressed re: her mother being diagnosed with Alzheimer and is not able to help care for her. She states that a visiting nurse agency comes into the home and she has not been happy with the care that they are providing. She rates her depression a 7 out of 10 and her anxiety a 10 out of 10, 10 being the most severe. She denies any current SI or HI. She appears to be disheveled and unkempt and states that she is not able to care for herself. She reports that her mental health symptoms are "debilitating, " and she is not able to eat, sleep, drive or function. She states that she is feeling very hopeless and sometimes helpless. She also has multiple medical issues including Luther Disease, Chronic Fatigue Syndrome and Chronic pain from breaking her back years ago. She has been on Disability for the last 12 years. She denies any current or history of drug or alcohol abuse. She denies any history of trauma or abuse. Per the records she has missed some outpatient groups. She is not sure what would be helpful, however states that she is not able to return home with these symptoms. SW left a message for her cousin, Victor Hugo Vick ([phone]), and will await a call back, Patient's Address: [address] [place] [id number] Other Phone Number: Who Do You Live With? Mother Feel Safe Where You Live? Yes Feel Safe in Your Relationship No (Not in a relationship) If No, Please Elaborate: Denies being in a relationship Marital Status: Do You Have Children? No Primary Language? Citizen Of [place] Language(s) Spoken At Home: Citizen Of [place] Family/Informants Interviewed: Message left for her cousin, Victor Hugo Vick- Allergies - Coded Allergies: Penicillins (Intermediate, RASH 06/25/17) gluten (GI DISTURBANCE;HEADACHE 06/27/17) Current Medications - Scheduled Medications Diazepam (Valium) 5 MG TABLET 1 TAB PO SEE ADMIN CRITERIA anxiety #75 TAB Prescribed by Ezequiel Sow MD on 06/30/17 Duloxetine HCl 20 MG CAPSULE.DR 2 CAP PO DAILY depression/anxiety #30 CAP Prescribed by Ezequiel Sow MD on 06/30/17 Hydrocortisone 10 MG TABLET 2 TAB PO DAILY UNKNOWN #100 (Reported) Entered as Reported by Alfredo Argueta on 06/25/17 0825 Hydrocortisone 10 MG TABLET 1 TAB PO 1600 UNKNOWN (Reported) Entered as Reported by Alfredo Argueta on 06/25/17 0826 Levothyroxine Sodium 125 MCG TABLET 1 TAB PO DAILY AC THYROID #90 (Reported) Entered as Reported by Alfredo Argueta on 06/25/17 0826 Morphine Sulfate 15 MG TABLET 15 MG PO FOUR TIMES A DAY pain #60 TAB Prescribed by Ezequiel Sow MD on 06/30/17 Sertraline HCl (Zoloft) 50 MG TABLET 1 TAB PO DAILY anxiety/depression #30 TAB Prescribed by Ezequiel Sow MD on 06/30/17 Trazodone HCl 50 MG TABLET 50 MG PO QPM insomnia #15 TAB Prescribed by Ezequiel Sow MD on 06/30/17 Scheduled PRN Medications Cyclobenzaprine HCl 10 MG TABLET 10 MG PO Q6P PRN back spasms #30 TAB Prescribed by Ezequiel Sow MD on 06/30/17 Consequences of Psych Med Use: N/A Comment: N/A Lab Results: Laboratory Tests 08/07/171843: Serum Alcohol < 10.0 08/07/171843: Anion Gap 15, Estimated GFR > 60, BUN/Creatinine Ratio 23.3, Glucose 114 H, Calcium 9.9, Total Bilirubin 0.5, AST 23, ALT 37, Alkaline Phosphatase 61, Total Protein 6.8, Albumin 4.0, Globulin 2.8, Albumin/Globulin Ratio 1.4, Amylase 39, Lipase 48, TSH 0.058 L, Total Beta HCG NEGATIVE, CBC w Diff NO MAN DIFF REQ, RBC 4.77, MCV 90.1, MCH 31.2 H, MCHC 34.6, RDW 12.9, MPV 8.6, Gran % 81.2 H, Lymphocytes % 12.3 L, Monocytes % 6.1, Eosinophils % 0.2, Basophils % 0.2, Absolute Granulocytes 7.7 H, Absolute Lymphocytes 1.2, Absolute Monocytes 0.6, Absolute Eosinophils 0, Absolute Basophils 0, Urine Opiates Screen > 4000.00 H, Methadone Screen 85, Barbiturate Screen < 60, Ur Phencyclidine Scrn < 6.00, Amphetamines Screen < 100, U Benzodiazepines Scrn > 800 H, Urine Cocaine Screen < 50, Urine Cannabis Screen < 5.00 Toxicology Screen Completed? Yes Results: positive (Opiates and Benzodiazepines) Symptoms of Use: N/A Past History Past Medical History Medical History: Depression, Hypothyroidism, back pain osteoporosis adrenal insufficiency, Addisons disease, Chronic back pain and Chronic Fatigue Syndrome Past Surgical History Surgical History non-contributory Abuse/Trauma History Trauma History/Current Trauma: Denies History of Trauma/Abuse Treatment? No Abuse/Trauma Treatment: N/A Legal History Current Legal Status: none Have you ever been arrested? No Pending Court Dates: N/A Child Care Sitter N/A Psychosocial History Strengths/Capabilities: patient has some family support has own apartment with mother states wants to get better/ cousin Don and her aunt are resources. Physical Limitations (Interventions): The patient has multiple medical issues including chronic back from from falling and breaking her back. Psychiatric Treatment History Psych Treatment Psychiatric Treatment Yes Inpatient Treatment Yes Outpatient Treatment Yes Location of Treatment [facility] and a facility in [place]. Reason for Treatment Depression and anxiety Dates of Treatment CPS in June 2017, current with OPS and IP in [place] in 1997 Diagnosis by History: Depression Learning Disabled Risk Factors: high anxiety/distress, history of suicide atmpts, SA/MH hospitalized, limited support Substance Use/Abuse History Drug Use/Abuse minimum 12mo Hx Substances Used/Abused No (Pt. denies) First Use N/A Last Used N/A How much used/taken N/A How often N/A For how long N/A Route of use N/A Substance Abuse Treatment Substance Abuse Treatment Past Substance Abuse TX No (Pt. denies) Inpatient Treatment No Outpatient Treatment No Location of Treatment N/A Reason for Treatment N/A Dates of Treatment N/A Response to Treatment N/A Comments: N/A Sexual History Sexual Concerns: None noted Education History Highest Level of Education: high school/GED (By History), was in special education Preferred Learning Style: Unknown Current Mental Status Mental Status Orientation: Person, Place, Situation Affect: Anxious, Depressed Speech: Pressured Neuro-vegetative: Appetite Decreased, Helpless, Sleep Disturbance, Hopeless Appearance Appearance- Dress/Hygiene: The patient was sitting in the ramon, in hospital pant and her own t-shirt. She appears disheveled and unkempt. Behaviors Thought Process: WNL Thought Content: Perseverating on her extreme anxiety. Memory: WNL Insight: Fair SI/HI Risk Assessment - Minimum 6mo History- Past Suicidal Ideation/Attempts Yes Current Suicidal Ideation/Att No Past Homicidal Ideation/Att: No Current Homicidal Ideation/Attempts No Degree of Intent: She denies and current or history of SI or HI, however per notes she does have a history of making suicidal comments to her family. Gravely Disabled: Symptoms of depression and anxiety- she states that she is not able to function or complete activities of daily living. Risk Factors: high anxiety/distress, history of suicide atmpts, SA/MH hospitalized, limited support Lethality Ratin Needs/Init TX Plan/Goals: Admit to the inpatient unit for symptom stabilization. Work with provider on medication evaluatoin. Attend group, individual, and family sessoins. Work with treatment team to transition back to care in the community. AUDIT-C Questionnaire: AUDIT-C Questionnaire: Response Value ETOH use in the past year Never 0 # drinks typical/day Doesn't Drink 0 6 or > drinks per occasion Never 0 Total 0 DSM5/PS Stressors/Medical Prob Diagnosis' (DSM 5, Stressors, Medical): F32.9 Unspecified Depressive Disorder F41.9 Unspecified Anxiety Disorder Medical: Addisons Disease, Chronic back pain, Chronic Fatique Syndrome. Stressors: Chronic medical issues, father , Mother diagnosed with Alzheimer's Disease Current GAF: 30 Comments: N/A
--- NOTE | 2017-08-08 14:12 | CPS PROVIDER INIT ASMT PSYCH ---
Psychiatric Admission Manager Client's Note Reviewed: Yes Patient Seen and Examined: Yes Identifying Information: 46 years old, female, unemployed, receiving disability benefits, living with her mother in their home in [facility] Chief Complaint: I am very anxious, I shake, I think I am helping withdrawals from the diazepam Reaction to Hospitalization: Voluntary admission History of Present Illness Onset of Illness: The patient was in the outpatient psychiatric services, medication changed recently, the patient presented to the emergency room with disabling anxiety Circumstances Leading to Admission: The patient had recent decrease in the benzodiazepine dose and she became increasingly anxious, withdrawn. Problem(s) Justifying Need for Admission: The patient is not able to care for herself, the anxiety was overwhelming and she started to become more and more depressed, feeling hopeless, helpless, not eating or sleeping, not being able to perform ADLs, Gravely disabled Past Psychiatric History Past Diagnosis(es)- if any: Panic disorder, major depressive disorder, ADD, PTSD Past Precipitating Factors- if any: Father's demise, mother's illness, financial problems - Include inpatient and outpatient treatment Treatment History: Has been inpatient on Inpatient Psychiatry, had out patient psychiatric medication management and individual psychotherapy, most recently with outpatient psychiatric services at [facility]. History of Suicide Attempts or Gestures Denies Substance Abuse History: Denies Allergies: Coded Allergies: Penicillins (Intermediate, RASH 06/25/17) gluten (GI DISTURBANCE;HEADACHE 06/27/17) Home Med List: Diazepam (Valium) 5 MG TABLET 1 TAB PO SEE ADMIN CRITERIA anxiety #75 TAB Prescribed by Ezequiel Sow MD on 06/30/17 Duloxetine HCl 20 MG CAPSULE.DR 2 CAP PO DAILY depression/anxiety #30 CAP Prescribed by Ezequiel Sow MD on 06/30/17 Hydrocortisone 10 MG TABLET 2 TAB PO DAILY UNKNOWN #100 (Reported) Entered as Reported by Alfredo Argueta on 06/25/17 08 Hydrocortisone 10 MG TABLET 1 TAB PO 1600 UNKNOWN (Reported) Entered as Reported by Alfredo Argueta on 06/25/17825 Levothyroxine Sodium 125 MCG TABLET 1 TAB PO DAILY AC THYROID #90 (Reported) Entered as Reported by Alfredo Argueta on 06/25/17825 Morphine Sulfate 15 MG TABLET 15 MG PO FOUR TIMES A DAY pain #60 TAB Prescribed by Ezequiel Sow MD on 06/30/17 Sertraline HCl (Zoloft) 50 MG TABLET 1 TAB PO DAILY anxiety/depression #30 TAB Prescribed by Ezequiel Sow MD on 06/30/17 Trazodone HCl 50 MG TABLET 50 MG PO QPM insomnia #15 TAB Prescribed by Ezequiel Sow MD on 06/30/17 - Include any medical condition(s) that may - impact the patient's recovery/remission Past History Medical History Neurological: NONE, NEUROPATHY EENT: NONE Cardiovascular: MITRAL VALVE PROLAPSE Respiratory: NONE Gastrointestinal: diverticulitis Hepatic: NONE Renal: NONE, urinary incontinence Musculoskeletal: chronic back pain, degen joint disease Psychiatric: anxiety, depression, opioid dependence, substance abuse (benzo), ADHD Endocrine: adrenal insufficiency, hypothyroidism, AMANDA'S DISEASE Blood Disorders: anemia Cancer(s): NONE DOUBLE CUTTER/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: endometriosis History of MRSA: No History of VRE: No History of CDIFF: No Isolation History: Standard Surgical History Surgical History: non-contributory Psychiatric Family/Social Hx Family History Psychiatric Illness: The patient's mother suffers from depression, anxiety, most recently she was diagnosed with Alzheimer's dementia. Substance Use: she denies Suicides: not that she knows Social History Living Situation: Lives with her mother in their home in [facility]. 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 - #1 Recognizing dangerous situations. - #2 Coping Skills. - #3 Basic information about quitting. Status of Tobacco Cessation Counseling: Not Applicable Cessation Med Status Not Applicable Alcohol Screening - ETOH screen POS if BAL >=80 or Audit-C>= M4/F3 Audit-C Score from Diag Assess: 0 Alcohol Use Screening Results: Neg per Audit C &/or BAL - If ETOH counseling indicated - the following topics are required. - #1 Express concern about the patient's - drinking at unhealthy levels, include informing - of national norms for moderate drinking: - men <= 14 drinks/week, max 4 drinks/occasion - women <= 7 drinks/week, max 3 drinks/occasion - #2 Providing feedback, including linking alcohol to - negative physical effects (liver injury, hypertension) - negative emotional effects (relationship problems and - depression) - negative occupational consequences (reduced work - performance) - #3 Advising the patient to abstain from alcohol or - to drink below national norms for moderate drinking - (as listed above). Status of ETOH Use Counseling: N/A B/C NO ETOH Use Metabolic Screening - Screen if on a Neuroleptic Medication - Metabolic screening should include: - Blood Pressure, BMI, Glucose or Hgb A1c, & a - Lipid profile from within the past 365 days. Exam and Plan Mental Status Examination Ambulation Status: Ambulates without assistance Appearance: 46 years old female with long, dark brown greasy hair, she has spinal kyphosis, wears glasses, disheveled Attitude towards examiner: Cooperative Psychomotor activity: Within normal limits Behavior: Calm, pleasant Quality of speech: The patient's speech is well articulated, goal directed, average in rate, volume and tone. Affect: The patient affect is constricted blunted, sluggish, Mood: Anxious and depressed Suicidal Ideation: Denies Homicidal Ideation: Denies Hallucinations: Denies Paranoid/Delusional Material: None elicited/reported Difficulties with thought organization: Circumstantial, with difficulty initializing and finishing tasks Insight: The patient has good insight and judgment, and is motivated for treatment. Judgment: Fair Orientation: To time, place, person and situation Cognition: Intact Memory Function: Intact Estimate of intellectual functioning: Average Assets/Strengths Patient Identified Assets/Strengths: Motivated for treatment, intelligent Impression/Plan - Include all active medical diagnosis that require tx DSM 5 Diagnosis(es): Unspecified depressive disorderrule out major depressive disorder Unspecified anxiety disorder She suffers from [place]'s disease, hypothyroidism, chronic pain GAF is 30% - Initial Tx Plan for Active Psych & Medical Conditions Treatment Plan: Inpatient stabilization in a safe, structured environment, V medication management, individual and group psychotherapy. Appropriate aftercare. The patient will see Dr. Godfrey next week - Factors that would help patient function - in a less restrictive setting. Factors: Improved mood, improved social support system, absence of suicidal ideation, absence of racing thoughts, ability to perform ADLs without prompting.
--- NOTE | 2017-08-08 14:15 | History & Physical ---
General Information and HPI History of Present Illness: 46F PMH hypothyroidism, chronic fatigue syndrome, chronic back pain, adrenal insufficiency, opioid/benzo dependence & polysubstance abuse admitted to [facility] with increased anxiety and depression, denies SI/HI. Reports 5 years of urinary incontinence described as urge incontinence that has not changed in character recently. Denies dysuria or hematuria. Has not been worked up for incontinence. Has no other complaints and feels well otherwise. Takes her hydrocortisone 20mg in the morning and 10mg at 4pm. TSH slightly decreased, no prior for comparison. Allergies/Medications Allergies: Coded Allergies: Penicillins (Intermediate, RASH 06/25/17) gluten (GI DISTURBANCE;HEADACHE 06/27/17) Home Med list Hydrocortisone 10 MG TABLET 2 TAB PO DAILY UNKNOWN (Reported) Hydrocortisone 10 MG TABLET 1 TAB PO 1600 UNKNOWN (Reported) Levothyroxine Sodium 125 MCG TABLET 1 TAB PO DAILY AC THYROID (Reported) Morphine Sulfate 15 MG TABLET 15 MG PO FOUR TIMES A DAY pain Past History Travel History Traveled to [facility] past 21 day No Medical History Neurological: NONE, NEUROPATHY EENT: NONE Cardiovascular: MITRAL VALVE PROLAPSE Respiratory: NONE Gastrointestinal: diverticulitis Hepatic: NONE Renal: NONE, urinary incontinence Musculoskeletal: chronic back pain, degen joint disease Psychiatric: anxiety, depression, opioid dependence, substance abuse (benzo), ADHD Endocrine: adrenal insufficiency, hypothyroidism, AMANDA'S DISEASE Blood Disorders: anemia Cancer(s): NONE 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 FATHER, . Psychosocial History Where do you live? Home Primary Language: [place] ETOH Use: denies use Illicit Drug Use: denies illicit drug use Functional Ability ADLs Independent: dressing, eating, toileting, bathing. Ambulation: independent Review of Systems Review of Systems Constitutional: Reports: no symptoms. EENTM: Reports: no symptoms. Cardiovascular: Reports: no symptoms. Respiratory: Reports: no symptoms. GI: Reports: no symptoms. Genitourinary: Reports: no symptoms. Musculoskeletal: Reports: no symptoms. Skin: Reports: no symptoms. Neurological/Psychological: Reports: no symptoms. Hematologic/Endocrine: Reports: no symptoms. Immunologic/Allergic: Reports: no symptoms. All Other Systems: Reviewed and Negative Exam & Diagnostic Data Last 24 Hrs of Vital Signs/I&O Vital Signs Date Time Temp Pulse Resp B/P B/P Pulse O2 O2 Flow FiO2 Mean Ox Delivery Rate 08/08 1408 92 106/53 08/08 1237 98.6 86 131/75 08/08 1208 98.6 86 131/75 08/08 1050 99.2 84 18 120/71 08/08 1050 99.2 84 18 120/71 98 Room Air 08/08 0620 97.8 81 18 121/76 08/08 0616 97.8 81 18 121/76 99 Room Air 08/08 0130 98.6 70 20 117/66 08/08 0124 98.6 70 20 117/66 97 Room Air 08/07 2031 Room Air 08/07 203 98.5 72 16 116/69 97 Room Air 08/07 1824 98.3 99 18 129/77 97 Room Air Room Air Intake & Output 08/08 1600 08/08 0800 08/08 0000 Intake Total 1000 Output Total Balance 1000 Intake, IV 1000 Patient 58.06 kg 58.967 kg Weight Weight Estimated Measurement Method Physical Exam General Appearance Alert, Oriented X3, Cooperative, No Acute Distress Skin No Rashes HEENT Mucous Membr. moist/pink Neck Supple Cardiovascular Regular Rate Lungs Clear to Auscultation Abdomen Soft Neurological Exam Findings: Normal Gait, Normal Speech Cranial Nerves II through XII: normal as tested Extremities No Edema Last 24 Hrs of Labs/Db: Laboratory Tests 08/07/171843: Serum Alcohol < 10.0 08/07/171843: Anion Gap 15, Estimated GFR > 60, BUN/Creatinine Ratio 23.3, Glucose 114 H, Calcium 9.9, Total Bilirubin 0.5, AST 23, ALT 37, Alkaline Phosphatase 61, Total Protein 6.8, Albumin 4.0, Globulin 2.8, Albumin/Globulin Ratio 1.4, Amylase 39, Lipase 48, TSH 0.058 L, Total Beta HCG NEGATIVE, CBC w Diff NO MAN DIFF REQ, RBC 4.77, MCV 90.1, MCH 31.2 H, MCHC 34.6, RDW 12.9, MPV 8.6, Gran % 81.2 H, Lymphocytes % 12.3 L, Monocytes % 6.1, Eosinophils % 0.2, Basophils % 0.2, Absolute Granulocytes 7.7 H, Absolute Lymphocytes 1.2, Absolute Monocytes 0.6, Absolute Eosinophils 0, Absolute Basophils 0, Urine Opiates Screen > 4000.00 H, Methadone Screen 85, Barbiturate Screen < 60, Ur Phencyclidine Scrn < 6.00, Amphetamines Screen < 100, U Benzodiazepines Scrn > 800 H, Urine Cocaine Screen < 50, Urine Cannabis Screen < 5.00 Assessment/Plan Assessment: 46F PMH hypothyroidism, chronic fatigue syndrome, chronic back pain, adrenal insufficiency, opioid/benzo dependence & polysubstance abuse admitted to [facility] for anxiety and depression. TSH is slightly low without symptoms of thyrotoxicosis, with 5 years of urge incontinence. 1. Anxiety/depression 2. Hypothyroidism 3. Jackson's disease 4. Urge incontinence Plan - Management primarily by psychiatry - Will continue Synthroid at slightly reduced dose of 112mcg. This should be continued on discharge and her TSH should be followed up in 6 weeks - Please send full TFT's with next lab draw - May start Oxybutynin 5mg BID if no contraindications or interactions with psychiatry medications - Urology referral on discharge - Hydrocortisone 20mg qam and 10mg at 4pm - Ambulatory for DVT PPx As Ranked By This Provider Problem List: 1. Adrenal insufficiency 2. Depression 3. Anxiety Miscellaneous Miscellaneous Documentation Attending Case Discussed With: Micheal Corbin MD Primary Care Physician: Tony Wei MD Patient sees these Specialists Bull Barnhart Level of Patient Care: [facility]
--- NOTE | 2017-08-08 23:56 | Cons- Endocrinology ---
General Information and HPI Consulting Request Date of Consult: 08/08/17 Requested By: Amee Reason for Consult: management of hypothyroidism and adrenal insufficiency Source of Information: patient, old records Exam Limitations: no limitations History of Present Illness: 46 year old female who has had hypothyroidism and adrenal insufficiency which were diagnosed by Dr. Meza years ago and has been on Levothyroxine 125 mcg daily and Hydrocortisone 20 mg am and 10 mg at 4 pm, , presented to the ED with increased symptoms of depression and anxiety. Patient was inpatient on CPS at [facility] in June of 2017 and has been followed by Dr. Godfrey in OPS at [facility]. The patient reported that they are working on medication changes and decreasing her Diazepam. As per patient, she has not been able to function. She reports that she has been experiencing extreme anxiety with panic attacks. In addition, she has been feeling depressed. Blood work showed TSH 0.058, free 4 1.98 and TT4 11.2. She has been feeling jittery. Allergies/Medications Allergies: Coded Allergies: Penicillins (Intermediate, RASH 06/25/17) gluten (GI DISTURBANCE;HEADACHE 06/27/17) Home Med List: Hydrocortisone 10 MG TABLET 2 TAB PO DAILY UNKNOWN (Reported) Hydrocortisone 10 MG TABLET 1 TAB PO 1600 UNKNOWN (Reported) Levothyroxine Sodium 125 MCG TABLET 1 TAB PO DAILY AC THYROID (Reported) Morphine Sulfate 15 MG TABLET 15 MG PO FOUR TIMES A DAY pain Review of Systems Review of Systems Constitutional: Reports: see HPI. Cardiovascular: Denies: chest pain, palpitations. Respiratory: Denies: short of breath. GI: Denies: abdominal pain. Neurological/Psychological: Reports: see HPI (feeling jittery). 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 FATHER, . Psychosocial History Where Do You Live? Home Primary Language: Sammarinese ETOH Use: denies use Illicit Drug Use: denies illicit drug use Functional Ability ADLs Independent: dressing, eating, toileting, bathing. Ambulation: independent Exam & Diagnostic Data Last 24 Hrs of Vital Signs/I&O Vital Signs Date Time Temp Pulse Resp B/P B/P Pulse O2 O2 Flow FiO2 Mean Ox Delivery Rate 08/08 2200 96 106/72 08/08 1942 99.2 99 118/70 08/08 1939 99.2 99 118/70 08/08 1805 96 139/80 08/08 1556 95 109/85 08/08 1556 95 109/85 08/08 1408 92 106/53 08/08 1237 98.6 86 131/75 08/08 1208 98.6 86 131/75 08/08 1050 99.2 84 18 120/71 08/08 1050 99.2 84 18 120/71 98 Room Air 08/08 0620 97.8 81 18 121/76 08/08 0616 97.8 81 18 121/76 99 Room Air 08/08 0130 98.6 70 20 117/66 08/08 0124 98.6 70 20 117/66 97 Room Air Intake & Output 08/08 1600 08/08 0800 08/08 0000 Intake Total 1000 Output Total Balance 1000 Intake, IV 1000 Patient 128 lb 130 lb Weight Weight Estimated Measurement Method Physical Exam General Appearance: comfortable Neck: thyromegaly (mild) Respiratory: lungs clear Cardiovascular: regular rate/rhythm Back: kyphosis Extremities: no edema Labs/Db Results: Laboratory Tests 08/08 08/07 08/07 1408 1844 1844 Chemistry Sodium (137 - 145 mmol/L) 143 Potassium (3.5 - 5.1 mmol/L) 4.1 Chloride (98 - 107 mmol/L) 104 Carbon Dioxide (22 - 30 mmol/L) 25 Anion Gap (5 - 16) 15 BUN (7 - 17 mg/dL) 14 Creatinine (0.5 - 1.0 mg/dL) 0.6 Estimated GFR (>60 ml/min) > 60 BUN/Creatinine Ratio (7 - 25 %) 23.3 Glucose (65 - 99 mg/dL) 114 H Calcium (8.4 - 10.2 mg/dL) 9.9 Total Bilirubin (0.2 - 1.3 mg/dL) 0.5 AST (14 - 36 U/L) 23 ALT (9 - 52 U/L) 37 Alkaline Phosphatase (<127 U/L) 61 Total Protein (6.3 - 8.2 g/dL) 6.8 Albumin (3.5 - 5.0 g/dL) 4.0 Globulin (1.9 - 4.2 gm/dL) 2.8 Albumin/Globulin Ratio (1.1 - 2.2 %) 1.4 Amylase (30 - 110 U/L) 39 Lipase (23 - 300 U/L) 48 TSH (0.270 - 4.200 uIU/mL) 0.058 L Free T4 (0.64 - 1.79 ng/dL) Cancelled 1.98 H Thyroxine (T4) (4.5 - 10.9 ug/dL) Cancelled 11.2 H Total Beta HCG (NEGATIVE) NEGATIVE Hematology CBC w Diff NO MAN DIFF REQ WBC (4.8 - 10.8 /CUMM) 9.4 RBC (4.20 - 5.40 /CUMM) 4.77 Hgb (12.0 - 16.0 G/DL) 14.9 Hct (37 - 47 %) 42.9 MCV (81.0 - 99.0 FL) 90.1 MCH (27.0 - 31.0 PG) 31.2 H MCHC (33.0 - 37.0 G/DL) 34.6 RDW (11.5 - 14.5 %) 12.9 Plt Count (130 - 400 /CUMM) 282 MPV (7.4 - 10.4 FL) 8.6 Gran % (42.2 - 75.2 %) 81.2 H Lymphocytes % (20.5 - 51.1 %) 12.3 L Monocytes % (1.7 - 9.3 %) 6.1 Eosinophils % (0 - 5 %) 0.2 Basophils % (0.0 - 2.0 %) 0.2 Absolute Granulocytes (1.4 - 6.5 /CUMM) 7.7 H Absolute Lymphocytes (1.2 - 3.4 /CUMM) 1.2 Absolute Monocytes (0.10 - 0.60 /CUMM) 0.6 Absolute Eosinophils (0.0 - 0.7 /CUMM) 0 Absolute Basophils (0.0 - 0.2 /CUMM) 0 Toxicology Urine Opiates Screen (>2000 NG/ML) > 4000.00 H Methadone Screen (>300 NG/ML) 85 Barbiturate Screen (>200 NG/ML) < 60 Ur Phencyclidine Scrn (>25 NG/ML) < 6.00 Amphetamines Screen (>1000 NG/ML) < 100 U Benzodiazepines Scrn (>200 NG/ML) > 800 H Urine Cocaine Screen (>300 NG/ML) < 50 Urine Cannabis Screen (>50 NG/ML) < 5.00 Serum Alcohol (<10 MG/DL) < 10.0 Assessment/Plan Assessment/Plan 46 year old female who has had hypothyroidism and adrenal insufficiency which were diagnosed by Dr. Meza years ago and has been on Levothyroxine 125 mcg daily and Hydrocortisone 20 mg am and 10 mg at 4 pm, , presented to the ED with increased symptoms of depression and anxiety. Blood work showed TSH 0.058, free 4 1.98 and TT4 11.2. She has been feeling jittery. Plan: 1. decrease Hydrocortisone to 20 mg am and 5 mg at 4 pm for now; 2. continue Levothyroxine 125 mcg daily for now; 3. repeat TSH, free T4 and check TT3 tomorrow to look for a trend. will follow Consult Acknowledgment - Thank you for your consult request.
[2017-08-09] VITALS (13 sets, daily range): BP systolic 96–127; BP diastolic 52–89
--- NOTE | 2017-08-09 12:50 | PN- Endocrinology ---
Assessment/Plan Endoscopy Assessment: 46 year old female who has had hypothyroidism and adrenal insufficiency which were diagnosed by Dr. Meza years ago and has been on Levothyroxine 125 mcg daily and Hydrocortisone 20 mg am and 10 mg at 4 pm, , presented to the ED with increased symptoms of depression and anxiety. Blood work showed TSH 0.058, free 4 1.98 and TT4 11.2. She has been feeling jittery. Hydrocortisone was decreased to 20 mg am and 5 mg at 4 pm. The repeat TFT showed TSH 0.231, free T4 1.29 and TT3 1.01--- improving. Plan: 1. continue Hydrocortisone 20 mg am and 5 mg at 4 pm for now 2. continue Levothyroxine 125 mcg daily for now; will follow. Subjective Subjective: She is taking a nap at this point. Objective Last 24 Hrs of Vital Signs/I&O Vital Signs Date Time Temp Pulse Resp B/P B/P Pulse O2 O2 Flow FiO2 Mean Ox Delivery Rate 08/09 1238 76 125/78 08/09 1224 76 125/78 08/09 1014 93 125/86 08/09 0829 98.2 81 96/52 08/09 0829 98.2 81 96/52 08/09 0506 95 126/66 08/09 0259 91 117/83 08/09 0114 93 102/71 08/08 2200 96 106/72 08/08 1942 99.2 99 118/70 08/08 1939 99.2 99 118/70 08/08 1805 96 139/80 08/08 1556 95 109/85 08/08 1556 95 109/85 08/08 1408 92 106/53 Results Pertinent Lab/Db Results: Laboratory Tests 08/09 08/08 0611 1408 Chemistry TSH (0.270 - 4.200 uIU/mL) 0.231 L Free T4 (0.64 - 1.79 ng/dL) 1.29 Cancelled Thyroxine (T4) Cancelled Total T3 (0.97 - 1.69 ng/mL) 1.01
--- NOTE | 2017-08-09 14:57 | CP SOUTH PROGRESS NOTE PSYCH ---
Psych (Inpt) Progress Note Progress Note Include the following elements, when applicable: Involvement in the active treatment of the patient with behavioral observations of the patient and the patient's response to the treatment. Review of the ongoing treatment process in the context of the treatment plan. Indication of how multi-disciplinary staff members are carrying out the treatment plan. Plans for future interventions and recommendations for revision of the treatment plan. Liaison with other physicians/providers. Progress Note: 46 years old female in treatment for major depressive disorder, PTSD, history of ADHD, with opioid and benzodiazepine use disorder ( prescribed) in the process of being detoxified from diazepam. The patient came into the emergency room complaining of increased anxiety which she attributed to having had a reduction in the dose of diazepam by 5 mg. She continues to be demanding, dramatic, requesting antianxiety medication, increase in the opioid analgesics, complaining of pain, racing thoughts, anxiety. She says: "Ritalin used to help with that". We discussed about the side effects of the Ritalin 1 of the major ones being anxiety. We discussed about the medication used to replace the diazepam-we added Topamax, carbamazepine, she continues to be on Ativan taper with as needed Ativan according to the CIWA score. She is alert, awake, interacting with peers and staff members, oriented to place , time, person, situation. Denies suicidal/homicidal ideation, auditory/visual hallucinations. She is compliant with medication. Current Medications Sig/Ras Start time Last Medication Dose Route Stop Time Status Admin Carbamazepine 200 MG BID 08/09 2100 AC 08/10 PO 1207 Diphenhydramine HCl 25 MG ONCE ONE 08/10 0030 DC 08/10 PO 08/10 0031 0020 Duloxetine HCl 60 MG DAILY 08/09 0900 AC 08/10 PO 1207 Haloperidol 5 MG ONCE ONE 08/10 0030 DC 08/10 PO 08/10 0031 0020 Hydrocortisone 5 MG DAILY@1600 08/09 1600 AC 08/10 PO 1715 Hydrocortisone 20 MG DAILY 08/08 0900 AC 08/10 PO 1207 Levothyroxine Sodium 0.125 MG DAILY AC 08/09 0700 AC 08/10 PO 0710 Lorazepam 1.5 MG 4 TIMES/DAY 08/10 1300 AC 08/10 PO 1715 Lorazepam 0.5 MG 4 TIMES/DAY 08/10 0900 DC PO 08/17 0859 Lorazepam 1 MG ONCE ONE 08/10 0030 DC 08/10 PO 08/10 0031 0020 Lorazepam 1 MG Q1 NEEDED PRN 08/09 1445 AC 08/09 PO 1457 Lorazepam 2 MG Q1 PRN 08/09 1445 AC PO Lorazepam 2 MG 4 TIMES/DAY 08/08 1345 DC 08/09 PO 08/10 0859 2125 Morphine Sulfate 30 MG BID 08/10 1200 AC 08/10 PO 1209 Morphine Sulfate 30 MG BID 08/09 2100 DC 08/09 PO 2126 Propranolol HCl 20 MG 4 TIMES/DAY PRN 08/09 1600 AC 08/09 PO 2315 Sertraline HCl 100 MG DAILY 08/08 1400 AC 08/10 PO 1207 Topiramate 25 MG BID 08/09 1444 AC 08/10 PO 1207 Date Time Temp Pulse Resp B/P B/P Pulse O2 O2 Flow FiO2 Mean Ox Delivery Rate 08/10 1621 88 108/69 08/10 1619 88 108/69 08/10 1213 83 106/77 08/10 1212 83 106/77 08/10 1037 67 91/58 08/10 0836 96.4 60 103/65 08/10 0833 96.4 60 103/65 08/09 2315 98.9 92 18 120/77 08/09 195 98.9 92 120/77 08/09 1950 98.9 92 We reviewed the endocrine consult, Dr. bose reduced hydrocortisone and she will follow up with the patient on a battery of tests ordered. The patient is in treatment with Dr. bose for adrenal insufficiency, hypothyroidism, Luther's disease. We will continue present medication regimen, observation, symptom monitoring. The patient will be followed up daily by the unit psychiatrist.
--- NOTE | 2017-08-09 20:35 | SOCIAL WORKER SOCIAL HX PSYCH ---
Social History Basic Assessment Insurance Authorization: Insurance #1: Insurance name: MEDICARE A Phone number: Policy number: [id number] Group number: Authorization number: Curr Source of Income/Entitlements: SSDI Primary Care Physician: Patient's PCP: Tony Wei MD PCP's Present Problem: The patient is a 46 year old, single female, presenting to the ED with increased symptoms of depression and anxiety. The patient reports that she was inpatient on CPS at [facility] in June of 2017 and has been followed by Dr. Godfrey in OPS at [facility]. The patient reports that they are working on medication changes and decreasing her Diazepam, noting that she has not been able to function. She reports that she has been experiencing extreme anxiety with panic attacks. She states that she is feeling depressed re: her mother being diagnosed with Alzheimer and is not able to help care for her. She states that a visiting nurse agency comes into the home and she has not been happy with the care that they are providing. She rates her depression a 7 out of 10 and her anxiety a 10 out of 10, 10 being the most severe. She denies any current SI or HI. She appears to be disheveled and unkempt and states that she is not able to care for herself. She reports that her mental health symptoms are "debilitating," and she is not able to eat, sleep, drive or function. She states that she is feeling very hopeless and sometimes helpless. She also has multiple medical issues including Amanda Disease, Chronic Fatigue Syndrome and Chronic pain from breaking her back years ago. She has been on Disability for the last 12 years. She denies any current or history of drug or alcohol abuse. She denies any history of trauma or abuse. Per the records she has missed some outpatient groups. She is not sure what would be helpful, however states that she is not able to return home with these symptoms. Maya Jaramillo COMPLEX HUMAN RESOURCES MANAGER> 08/08/17 Primary Language? Macedonian Language(s) Spoken At Home: Macedonian Living Situation Rents or Owns Home? rents Feel Safe Where You Are Living Yes Feel Safe in Relationships? Yes Allergies - Coded Allergies: Penicillins (Intermediate, RASH 06/25/17) gluten (GI DISTURBANCE;HEADACHE 06/27/17) Current Medications - Scheduled Medications Hydrocortisone 10 MG TABLET 2 TAB PO DAILY UNKNOWN #100 (Reported) Entered as Reported by Alfredo Arugeta on 06/25/17 0825 Hydrocortisone 10 MG TABLET 1 TAB PO 1600 UNKNOWN (Reported) Entered as Reported by Alfredo Argueta on 06/25/17 0826 Levothyroxine Sodium 125 MCG TABLET 1 TAB PO DAILY AC THYROID #90 (Reported) Entered as Reported by Alfredo Argueta on 06/25/17 0826 Morphine Sulfate 15 MG TABLET 15 MG PO FOUR TIMES A DAY pain #60 TAB Prescribed by Ezequiel Sow MD on 06/30/17 Discontinued Medications Cyclobenzaprine HCl 10 MG TABLET 10 MG PO Q6P PRN back spasms #30 TAB Discontinued reason: Pt Decision, not taking Diazepam (Valium) 5 MG TABLET 1 TAB PO SEE ADMIN CRITERIA anxiety #75 TAB Discontinued reason: Changed how to take Duloxetine HCl 20 MG CAPSULE. 2 CAP PO DAILY depression/anxiety #30 CAP Discontinued reason: Changed Dose Sertraline HCl (Zoloft) 50 MG TABLET 1 TAB PO DAILY anxiety/depression #30 TAB Discontinued reason: Changed Dose Trazodone HCl 50 MG TABLET 50 MG PO QPM insomnia #15 TAB Discontinued reason: Pt Decision, not taking Past History Past Medical History Neurological: NONE, NEUROPATHY EENT: NONE Cardiovascular: MITRAL VALVE PROLAPSE Respiratory: NONE Gastrointestinal: diverticulitis Hepatic: NONE Renal: NONE, urinary incontinence Musculoskeletal: chronic back pain, degen joint disease Psychiatric: anxiety, depression, opioid dependence, substance abuse (benzo), ADHD Endocrine: adrenal insufficiency, hypothyroidism, AMANDA'S DISEASE Blood Disorders: anemia 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 No Relationship w/Mother: has alzheimers and around the clock care/ "she was my best friend" Relationship w/Father: in January 2017, tearful, very close Any Sibling(s)? No Relationship w/Friends: "im concentrating on my Mom" Family Psych/Sub Abuse/Add Hx: denies Number of Pregnancies: 0 Number of Miscarriages: 0 Number of Abortions: 0 Abuse/Trauma History Trauma History/Current Trauma: Denies History of Trauma/Abuse Treatment? No Abuse/Trauma Treatment: N/A Legal History Have you ever been arrested No Director Of Elementary Education N/A Psychosocial History Primary Support System: cousin Strengths/Capabilities: patient has some family support has own apartment with mother states wants to get better/ cousin Don and her aunt are resources. Physical Limitations (Interventions): The patient has multiple medical issues including chronic back from from falling and breaking her back. Last Physical: 2017 History of Blackouts? No ADL Limitations: pain mangement issues [place]/Social/Peer Relations limited. 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 definitely Cultural/Ethnic Issues: denies Are There Developmental Issues? No Milestones Achieved: fine motor, gross motor Psychiatric Treatment History Psych Treatment Inpatient Treatment Yes Outpatient Treatment Yes Location of Treatment [facility] and a facility in [place]. Reason for Treatment Depression and anxiety Dates of Treatment [facility] in June 2017, current with OPS and IP in [place] in 1997 Diagnosis: Depression Learning Disabled Psychodynamic Issues: aging mother has alzheimers Risk Factors: high anxiety/distress, history of suicide atmpts, SA/MH hospitalized, limited support Substance Use/Abuse History Drug Use/Abuse:Min 12 mo hx First Use N/A Last Used N/A How much used/taken N/A How often N/A For how long N/A Route of use N/A Have You Ever Attended AA? 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 of Jobs in Last 5 Years: 0 History Have You Been in The ? No Current Mental Status Mental Status Orientation: Person, Place, Situation Affect: Anxious, Depressed Speech: Pressured Neuro-vegetative: Appetite Decreased, Helpless, Sleep Disturbance, Hopeless Appearance Appearance- Dress/Hygiene: The patient was sitting in the ramon, in hospital pant and her own t-shirt. She appears disheveled and unkempt. Behaviors Thought Process: WNL Thought Content: Perseverating on her extreme anxiety. Memory: WNL Insight: Fair SI/HI Risk Assessment Past Suicidal Ideation/Attempts Yes Current Suicidal Ideation/Att No Past Homicidal Ideation/Att: No Current Homicidal Ideation/Attempts No Degree of Intent: She denies and current or history of SI or HI, however per notes she does have a history of making suicidal comments to her family. Gravely Disabled: Symptoms of depression and anxiety- she states that she is not able to function or complete activities of daily living. Lethality Ratin - Conclusion and Recommendations for treatment - and discharge planning Summary: The patient is a 46 year old, single female, presenting to the ED with increased symptoms of depression and anxiety. The patient reports that she was inpatient on CPS at [facility] in June of 2017 and has been followed by Dr. Godfrey in OPS at [facility]. The patient reports that they are working on medication changes and decreasing her Diazepam, noting that she has not been able to function. She reports that she has been experiencing extreme anxiety with panic attacks. She states that she is feeling depressed re: her mother being diagnosed with Alzheimer and is not able to help care for her. She states that a visiting nurse agency comes into the home and she has not been happy with the care that they are providing. She rates her depression a 7 out of 10 and her anxiety a 10 out of 10, 10 being the most severe. She denies any current SI or HI. She appears to be disheveled and unkempt and states that she is not able to care for herself. She reports that her mental health symptoms are "debilitating," and she is not able to eat, sleep, drive or function. She states that she is feeling very hopeless and sometimes helpless. She also has multiple medical issues including Amanda Disease, Chronic Fatigue Syndrome and Chronic pain from breaking her back years ago. She has been on Disability for the last 12 years. She denies any current or history of drug or alcohol abuse. She denies any history of trauma or abuse. Per the records she has missed some outpatient groups. She is not sure what would be helpful, however states that she is not able to return home with these symptoms. Maya Jaramillo COMPLEX HUMAN RESOURCES MANAGER> 08/08/17
[2017-08-10] VITALS (9 sets, daily range): BP systolic 91–115; BP diastolic 58–77
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
[2017-08-11 08:23] VITALS: BP 103/64
--- NOTE | 2017-08-11 11:35 | CP SOUTH PROGRESS NOTE PSYCH ---
Psych (Inpt) Progress Note Progress Note I reviewed the note of Dr. Sierra Barnhart MD for 08/[address] Pooja Marroquin MD, for 08/10/17 MSE: General: Patient was sleeping, sitter at bedside, arousable, had a coherent short conversation, good eye contact. Normal speech/not slurred. No tics, tremors, stereotypy or other abnormal movements apparent. Denied thinking of suicide, she was not angry or irritable today. There were no delusions. Thought process was not loose or disorganized. The patient does have limitations in general fund of knowledge and information processing/executive dysfunction A&P: 46-year-old white female with depression, panic disorder, ADD, PTSD and opiate dependence currently unemployed. DDx delirium vs psychosis. Patient presenting with diazepam withdrawal, increased anxiety, isolation and hopelessness with poor ADLs. Medically complicated with incontinence, chronic back pain and [place]'s disease, hypothyroid and anemia, Dr Gottlieb following for endocrine. Treatment Plan Update: D/C 1:1 D/C CIWA D/C Propranolol PRN Reduce Duloxetine to 30 mg daily D/C Ativan Start Diazepam 15 mg tonight and 5 mg tomorrow at 8AM, then re-evaluate hydrocortisone 20mg am and 5 mg around 4pm, synthroid 0.125mg
[2017-08-11 12:34] VITALS: BP 144/80
[2017-08-11 16:17] VITALS: BP 123/76
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
[2017-08-11 19:51] VITALS: BP 105/77
--- NOTE | 2017-08-12 07:58 | CP SOUTH PROGRESS NOTE PSYCH ---
Psych (Inpt) Progress Note Progress Note Laboratory Tests 08/11 Urinalysis HEAVY H Urine Color (YEL,AMB,STR) YEL Urine Clarity (CLEAR) HAZY H Urine pH (5.0 - 8.0) 8.0 Ur Specific [place] (1.001 - 1.035) 1.015 Urine Protein (NEG,<30 MG/DL) NEG Urine Ketones (NEG) NEG Urine Nitrite (NEG) NEG Urine Bilirubin (NEG) NEG Urine Urobilinogen (0.1 - 1.0 EU/dl) 0.2 Ur Leukocyte Esterase (NEG) NEG Ur Microscopic SEDIMENT EXAMINED Urine RBC (0 - 5 /HPF) RARE Urine WBC (0 - 2 /HPF) RARE Ur Epithelial Cells (NONE,FEW) FEW Urine Hemoglobin (NEG) NEG Urine Glucose (N MG/DL) NEG Vital Signs Date Time Temp Pulse Resp B/P 08/12 0828 97.3 95 115/72 08/11 2205 98.4 80 08/11 1951 100.0 112 105/77 08/11 1617 122 123/76 08/11 1234 60 144/80 Mental status examination: Pt. was alert and oriented. She was anxious and tearful. She was coherent. She reported that she is physically not feeling well (her Temp went down today but she has a sore throat and painful lymph nodes in neck) She was complaining about glasses (frame broke when someone stepped on it). She showed good eye contact. Her speech was not pressured and not slurred. She is not tremulous today (she asked why was shaking when she came to the ED) No abnormal movements/dyskinesia apparent. Brea denied thinking of suicide, she was not angry or irritable today. There were no delusions. Her thought process was not disorganized. The patient does have limitations in general fund of knowledge and information processing/executive dysfunction Assessment Update: Brea is a 46-year-old White Female who was admitted to the inpatient psychiatric unit on 08/08/2017 because of increased anxiety, isolation and hopelessness with poor ADLs. Diagnostic Update (08/12/2017); Major Depressive Disorder Generalized Anxiety Disorder Learning Disability vs. Borderline Intellectual Functioning incontinence, chronic back pain and [place]'s disease, hypothyroid and anemia Treatment Plan Update: 1) Reduce Cymbalta to 30 mg daily 2) Reduce diazepam to 15 mg at bedtime 3) Add Gabapentin 400 mg TID 4) Reduce Tegretol to 100 mg BID 5) D/C Topamax Continue Sertraline 100 mg daily hydrocortisone 20mg am and 5 mg around 4pm, synthroid 0.125mg
[2017-08-12 08:28] VITALS: BP 115/72
[2017-08-12 12:27] VITALS: BP 133/76
[2017-08-12 16:47] VITALS: BP 127/88
--- NOTE | 2017-08-12 17:45 | SOCIAL WORKER PROG NOTE PSYCH ---
Social Work Progress Note Progress Note This ticket writer met with patient. She was sitting in her bed, tearful and describing her mood as "very down." She expressed concerns about her mother's care and would like to discuss placement in an assisted living or longterm during the family meeting tomorrow. Patient also expressed concern about her broken glasses and stated that she had spoken with Janey Pichardo about this earlier today. Patient was informed of CCT and was agreeable to signing the LANCE (LANCE submitted to Afua Villeda). Patient is also agreeable to a referral to [facility]. She denied SI/HI/AH/VH. This ticket writer spoke with patient's cousin, Sinan, and the family meeting tomorrow has been changed to 2pm (due to CCT meeting at 1pm).
[2017-08-12 19:55] VITALS: BP 113/71
[2017-08-13 08:03] VITALS: BP 108/69
--- NOTE | 2017-08-13 08:53 | CP SOUTH PROGRESS NOTE PSYCH ---
Psych (Inpt) Progress Note Progress Note Vital Signs Date Time Temp Pulse B/P 08/13 1222 100 106/77 08/13 0803 96.9 80 108/69 08/12 1955 99.1 108 113/71 08/12 1647 100 127/88 Mental status examination: Pt. was in bed she reported that she is not feeling well. She reported that she is tired. She does not know if she is going to be able to make it to the meeting with her cousin or not. She was oriented, she was anxious. She reported that her mood is depressed, and her affect was more irritable than yesterday she was coherent. She reported that she is physically not feeling well (reported a sore throat and painful lymph nodes in neck) She showed good eye contact. Her speech was not pressured and not slurred. She is not tremulous today (she asked why was shaking when she came to the ED); no abnormal movements/dyskinesia apparent. Brea denied thinking of suicide, she was not angry or irritable today. There were no delusions. Her thought process was not disorganized. The patient does have limitations in general fund of knowledge and information processing/executive dysfunction Assessment Update: Brea is a 46-year-old White Female who was admitted to the inpatient psychiatric unit on 08/08/2017 because of increased anxiety, isolation and hopelessness with poor ADLs. Diagnostic Update (08/12/2017); Major Depressive Disorder Generalized Anxiety Disorder Learning Disability vs. Borderline Intellectual Functioning incontinence, chronic back pain and [place]'s disease, hypothyroid and anemia Treatment Plan Update: 1) Cymbalta to 30 mg daily 2) Continue diazepam 15 mg at bedtime 3) Change Gabapentin to 300 mg in AM, 300 mg around 2:00 Pm and 600 mg at bedtime 4) Reduce Tegretol to 100 mg BID 5) Continue Sertraline 100 mg daily hydrocortisone 20mg am and 5 mg around 4pm, synthroid 0.125mg
[2017-08-13 12:22] VITALS: BP 106/77
[2017-08-13 15:52] VITALS: BP 131/74
--- NOTE | 2017-08-13 18:25 | SOCIAL WORKER PROG NOTE PSYCH ---
Social Work Progress Note Progress Note This financial writer met with the patient and her cousin for a family meeting. He observed that the patient's depression and anxiety has worsened, stating that she has not been feeling well and has had no energy. He identified the negativity and conflict between the patient and her mother's home health care as the trigger for the patient's worsening of sx/mood. This financial writer discussed resources identified in the CCT meeting today, which patient and her cousin were agreeable to: -new PCP ("I don't have a relationship with the one I have now" and she would like to find a new one) -referral to [facility] and [facility] -rest home -[facility] or [facility] outpatient services, to include case management Sinan, patient's cousin, stated that the patient may have access to funds if insurance does not pay for services. He asked to be contacted should there be barriers to services per insurance. Patient presented as depressed and very tearful during this meeting, however agreeable to services discussed. Don will bring clothing and assist the patient in getting new glasses.
[2017-08-13 19:37] VITALS: BP 121/77
[2017-08-14 07:28] VITALS: BP 107/71
[2017-08-14 12:05] VITALS: BP 116/76
--- NOTE | 2017-08-14 13:57 | CP SOUTH PROGRESS NOTE PSYCH ---
Psych (Inpt) Progress Note Progress Note Vital Signs Date Time Temp Pulse B/P B/P Pulse O2 FiO2 08/14 1205 95 116/76 08/14 0728 96.7 76 107/71 08/13 1937 98.1 100 121/77 08/13 1552 92 131/74 Mental Status examination: Brea started the session by saying "I don't think I am on the right medications. " She remains depressed with low energy, low motivation, and feeling anxious at the same time She has been afebrile, she reported that she may withdrawing when asked why, she said because she felt her heart racing on and off (see pulse above) She was oriented, she was tearful a couple of times she was coherent, She showed good eye contact. Her speech was not pressured and not slurred. She was not tremulous; no abnormal movements/dyskinesia apparent. Brea denied thinking of suicide, there were no delusions. She denied hallucinations. The patient does have limitations in general fund of knowledge and information processing/executive dysfunction Assessment Update: Brea is a 46-year-old White Female who was admitted to the inpatient psychiatric unit on 08/08/2017 because of increased anxiety, isolation and hopelessness with poor ADLs. She is showing slow improvement Diagnostic Update (08/12/2017); Major Depressive Disorder Generalized Anxiety Disorder Learning Disability vs. Borderline Intellectual Functioning incontinence, chronic back pain [place]'s disease, hypothyroidism anemia Treatment Plan Update: change diazepam to 5 mg TID D/C Tegretol Increase Sertraline to 150 mg daily Add PRN Temazepam hydrocortisone 20mg am and 5 mg around 4pm, synthroid 0.125mg
[2017-08-14 15:54] VITALS: BP 119/77
--- NOTE | 2017-08-14 18:03 | SOCIAL WORKER PROG NOTE PSYCH ---
Social Work Progress Note Progress Note This advertising writer met with patient. She presented as depressed and tearful, expressing sadness about "losing everything I have." She was unable to clarify further what she mean by "losing everything." Patient was very accusatory towards her cousin Victor Hugo that he does not actually want to provide support to her and is only doing so because "it's in the will." Patient maintains that she is agreeable to exploring a rest home. She informed this advertising writer that she would like to look into facilities in [facility]. We reviewed a list of rest homes and were unsuccessful. This advertising writer left a message for Caridad Llanos in case management requersting resources for rest homes in these [facility] if available. This advertising writer returned a call from Lety Conley RN with [facility] (L[facility] signed). Lety requested that this advertising writer contact her when a discharge date is identified in order to resume services. She stated that they will provide services as often as feels is appropriate. Patient stated that the visiting nurse currently comes to the home weekly.
[2017-08-14 19:42] VITALS: BP 131/87
[2017-08-15 08:55] VITALS: BP 119/87
--- NOTE | 2017-08-15 10:26 | CP SOUTH PROGRESS NOTE PSYCH ---
Psych (Inpt) Progress Note Progress Note Include the following elements, when applicable: Involvement in the active treatment of the patient with behavioral observations of the patient and the patient's response to the treatment. Review of the ongoing treatment process in the context Indication of how multi-disciplinary staff members are carrying out the treatment plan. Plans for future interventions and recommendations for revision of the treatment plan. Liaison with other physicians/providers. Progress Note: Pt notes that she continues to be constipated. Last bowel movement on . She did take colace as well as miralax. Offered mag citrate but wants to wait as miralac effective in the past for this issues. She notes good sleep overall. 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 Denies SI or HI. Current Medications Sig/Ras Start time Last Medication Dose Route Stop Time Status Admin Bisacodyl 10 MG 1515 08/14 1515 DC 08/14 PO 08/14 1516 1742 Carbamazepine 100 MG BID 08/12 2100 DC 08/14 PO 0842 Diazepam 5 MG ONCE ONE 08/14 1445 DC 08/14 PO 08/14 1446 1457 Diazepam 5 MG TID 08/14 1400 AC 08/15 PO 0852 Diazepam 15 MG AT BEDTIME 08/11 2100 DC 08/13 PO 2128 Duloxetine HCl 30 MG DAILY 08/12 09 AC 08/15 PO 0846 Gabapentin 300 MG TID 08/14 1400 AC 08/15 PO 0846 Gabapentin 400 MG TID 08/12 1400 DC 08/14 PO 0842 Hydrocortisone 5 MG DAILY@1600 08/09 1600 AC 08/14 PO 1659 Hydrocortisone 20 MG DAILY 08/08 0900 AC 08/15 PO 0846 Levothyroxine Sodium 0.125 MG DAILY AC 08/09 0700 AC 08/15 PO 0716 Magnesium Hydroxide 30 ML AT BEDTIME NEED.. 08/14 1515 AC 08/15 PO 0851 Morphine Sulfate 15 MG TID 08/12 1400 AC 08/15 PO 0853 Sertraline HCl 150 MG 08/15 08 AC 08/15 PO 0845 Sertraline HCl 100 MG DAILY 08/08 1400 DC 08/14 PO 0842 Temazepam 15 MG AT BEDTIME NEED.. 08/14 1400 AC PO Vital Signs Date Time Temp Pulse Resp B/P B/P Pulse O2 O2 Flow FiO2 Mean Ox Delivery Rate 08/15 854 97.5 80 119/87 08/14 1942 98.4 98 131/87 08/14 1554 98 119/77 08/14 1205 95 116/76 MSE General appearance: good hygiene and grooming; Attitude: cooperative; Eye contact: appropriate; Movement: no psychomotor agitation or slowing; Speech: nl fluency, nl rate/rhythm, nl volume, nl prosody; Mood: "OK" Affect: very irritable, flat, appropriate, constricted, non-labile, congruent; Thought process: linear and goal-directed; Thought content: denied SI or HI, no paranoid ideation; Perception: denied hallucinations- auditory, visual, does not appear to be responding to internal stimuli; I/J: limited A/P: Pt with depression and anxiety now improved though with multiple somatic complints -Continue current medication regimen -Encourage integration into the milieu - Monitor constipation closely, further meds or abx, if needed
[2017-08-15 11:53] VITALS: BP 119/80
[2017-08-15 16:04] VITALS: BP 131/80
[2017-08-15 19:55] VITALS: BP 118/88
[2017-08-16 07:37] VITALS: BP 106/78
--- NOTE | 2017-08-16 10:48 | CP SOUTH PROGRESS NOTE PSYCH ---
Psych (Inpt) Progress Note Progress Note Include the following elements, when applicable: Involvement in the active treatment of the patient with behavioral observations of the patient and the patient's response to the treatment. Review of the ongoing treatment process in the context of the treatment plan. Indication of how multi-disciplinary staff members are carrying out the treatment plan. Plans for future interventions and recommendations for revision of the treatment plan. Liaison with other physicians/providers. Progress Note: Pt reports small BM. Spoke at length about feeling that zoloft is making her "depressed." Reviewed medication indication and much more likely difficulty taper of other meds. Pt notes she feels very anxious. Current Medications Sig/Ras Start time Last Medication Dose Route Stop Time Status Admin Diazepam 5 MG TID 08/14 1400 AC 08/16 PO 0752 Duloxetine HCl 30 MG DAILY 08/12 09 AC 08/16 PO 0750 Gabapentin 300 MG TID 08/14 1400 AC 08/16 PO 0749 Hydrocortisone 5 MG DAILY@1600 08/09 1600 AC 08/15 PO 1603 Hydrocortisone 20 MG DAILY 08/08 0900 AC 08/16 PO 0749 Levothyroxine Sodium 0.125 MG DAILY AC 08/09 0700 AC 08/16 PO 0623 Magnesium Hydroxide 30 ML AT BEDTIME NEED.. 08/14 1515 AC 08/15 PO 0851 Morphine Sulfate 15 MG TID 08/12 1400 AC 08/16 PO 0752 Sertraline HCl 150 MG 08/15 0800 AC 08/16 PO 0750 Temazepam 15 MG AT BEDTIME NEED.. 08/14 1400 AC PO Vital Signs Date Time Temp Pulse Resp B/P B/P Pulse O2 O2 Flow FiO2 Mean Ox Delivery Rate 08/16 736 97.2 81 106/78 08/15 195 96.2 99 118/88 08/15 1604 95 131/80 08/15 1153 92 119/80 MSE General appearance: good hygiene and grooming; Attitude: cooperative; Eye contact: appropriate; Movement: no psychomotor agitation or slowing; Speech: nl fluency, nl rate/rhythm, nl volume, nl prosody; Mood: "not good, very anxious" Affect: very irritable, flat, not anxious appearing, appropriate, constricted, non-labile, congruent; Thought process: linear and goal-directed; Thought content: denied SI or HI, no paranoid ideation; Perception: denied hallucinations- auditory, visual, does not appear to be responding to internal stimuli; I/J: limited A/P: Pt with depression and anxiety now improved though with multiple somatic complints -Continue current medication regimen, added hydroxyzine PRN for anxiety -Encourage integration into the milieu - Monitor constipation closely, further meds or abx, if needed
[2017-08-16 11:51] VITALS: BP 119/89
[2017-08-16 15:39] VITALS: BP 108/76
[2017-08-16 20:01] VITALS: BP 127/88
[2017-08-17 07:51] VITALS: BP 112/93
--- NOTE | 2017-08-17 10:42 | CP SOUTH PROGRESS NOTE PSYCH ---
Psych (Inpt) Progress Note Progress Note I reviewed Dr. Ellis's notes for the weekend (08/15 and 2017) Treatment team discussed Pt's progress, treatment plan, and aftercare plans. Team included: LCSWs, RNs, Group/Activity/Art Therapy staff, and psychiatrist. Vital Signs: Vital Signs Date Time Temp Pulse B/P 08/17 1227 92 118/73 08/17 0751 97.3 89 112/93 Mental Status examination: Brea remains depressed with low energy and low motivation feeling anxious about "not having any family" to help her out. oriented, coherent, good eye contact. Her speech was not pressured and not slurred. She was not tremulous; no abnormal movements/dyskinesia apparent. Brea denied thinking of suicide, there were no delusions. She denied hallucinations. The patient does have limitations in general fund of knowledge and information processing/executive dysfunction Assessment Update: Brea is a 46-year-old White Female who was admitted to the inpatient psychiatric unit on 08/08/2017 because of increased anxiety, isolation and hopelessness with poor ADLs. She is showing slow improvement Diagnostic Update (08/12/2017); Major Depressive Disorder Generalized Anxiety Disorder Learning Disability vs. Borderline Intellectual Functioning incontinence, chronic back pain [place]'s disease, Hypothyroidism anemia Treatment Plan Update: Add Oxybutinine 5 mg BID Reduce Diazepam to 5 mg BID Start Methylphenidate 10 mg BID Continue Sertraline 150 mg daily Continue duloxetine 30 mg daily PRN Temazepam Gabapentin 300 MG TID 08/14 1400 AC 08/17 Hydrocortisone 5 MG DAILY@1600 08/09 1600 AC 08/16 Hydrocortisone 20 MG DAILY 08/08 0900 AC 08/17 Hydroxyzine HCl 50 MG Q6P PRN 08/16 1100 AC 08/16 Levothyroxine Sodium 0.125 MG DAILY AC 08/09 0700 AC 08/17 Methylphenidate HCl 10 MG 0800 & 1300 08/18 0800 AC Methylphenidate HCl 10 MG ONCE ONE 08/17 1345 DC 08/17 Morphine Sulfate 15 MG TID 08/12 1400 AC 08/17 Oxybutynin Chloride 5 MG BID 08/17 1345 AC Sertraline HCl 150 MG 0800 08/15 0800 AC 08/17 Temazepam 15 MG AT BEDTIME NEED.. 08/14 1400 AC
--- NOTE | 2017-08-17 11:11 | SOCIAL WORKER PROG NOTE PSYCH ---
Social Work Progress Note Progress Note LIZETH met with the patient to discuss discharge planning. The patient presented with depressed mood and flat affect. She reports that her depression is a 6 out of 10 and her anxiety is a 8 out of 10, 10 being the most severe. She states that she feels her medications are "dragging her down." She will talk about medication adjustments further with Dr. Sow. She denies any current SI or HI. LIZETH spoke with her about rest homes, as she has been working with HERNANDEZ Wiggins on going into one. The patient states, " I don't want to leave my home." She states that at this time she is not willing to consider going to a rest home and wants to return home with her mother. She would like to resume [facility] at [facility], when she is discharged. She expressed concerns about the visiting nurse resuming, stating she is not sure why they come to the house. She also talked about her Aunt and Cousin and wanting them to be more supportive. Plan: She will continue to work her Dr. Sow on medication management. She will think about going into a Rest home. She will continue to attend individual and group sessions.
[2017-08-17 12:27] VITALS: BP 118/73
[2017-08-17 15:54] VITALS: BP 114/84
[2017-08-17 19:47] VITALS: BP 119/78
[2017-08-18 07:43] VITALS: BP 110/70
--- NOTE | 2017-08-18 10:47 | CP SOUTH PROGRESS NOTE PSYCH ---
Psych (Inpt) Progress Note Progress Note Treatment team (HERNANDEZ, RN, Group/Activity Therapy staff, and psychiatrist) discussed the Pt.'s progress, treatment plan, and aftercare plans. Vital Signs: Blood pressure this morning was 110/70 mmHg, pulse was 65 bpm (which is a significant improvement from the past few days), and temperature was 96.8F. Mental Status Examination: Brea remains depressed about "not having any family left." She showed constricted to flat affect and no tearfulness today. On the positive side, she noticed improvement in energy and motivation since the addition of methylphenidate. She tolerated it well without increase in anxiety and her HR in fact droped from the 90s to the 60s. Brea was oriented to time, place, and person. She was coherent though somewhat perseerative. Her speech was neither pressured nor slurred. There were no abnormal movements. Brea denied thinking of suicide, there were no delusions. She denied hallucinations. Chronic limitations in general fund of knowledge and information processing/executive dysfunction Assessment Update: Brea is a 46-year-old White Female who was admitted to the inpatient psychiatric unit on 08/08/2017 because of increased anxiety, hopelessness, and poor ADLs. Since her admission, she has shown slow improvement in the following areas: better energy, better motivation, less hopelessness, and no thoughts of suicide. Diagnostic Update (08/12/2017); 1) Major Depressive Disorder 2) Generalized Anxiety Disorder 3) Learning Disability vs. Borderline Intellectual Functioning Urineray incontinence Luther's disease, Hypothyroidism anemia Chronic Back pain Treatment Plan Update: D/C Hydroxyzine HCl PRN Reduce Morphine Sulfate to 15 mg BID D/C PRN Temazepam Increase Gabapentin to 600 mg TID Continue Oxybutinine 5 mg BID Continue Diazepam 5 mg BID Continue Methylphenidate 10 mg 0800 & 1300 Continue Sertraline 150 mg daily Continue duloxetine 30 mg daily Levothyroxine Sodium 0.125 MG DAILY AC 08/09 0700 AC 08/17 08/12 1400 AC 08/17 DICTATED BY: Juanjose VILLA,Ezequiel
[2017-08-18 12:15] VITALS: BP 109/68
--- NOTE | 2017-08-18 15:34 | SOCIAL WORKER PROG NOTE PSYCH ---
See Addendum Social Work Progress Note Progress Note This principal technical writer met with patient. She was resistant to going to a rest home and stated that she would like to return home upon discharge from [facility]. She became tearful as she discussed her mother's progressing Alzheimer's/Dementia. Upon this principal technical writer's inquiry, patient expressed interest in finding a support group for family members of individuals with Alzheimer's/Dementia. Regarding treatment, patient is agreeable to a referral to [facility] as it is closer to home than outpatient services.
[2017-08-18 15:50] VITALS: BP 132/75
[2017-08-18 20:19] VITALS: BP 107/87
[2017-08-18 21:15] VITALS: BP 128/76
--- NOTE | 2017-08-19 07:58 | CP SOUTH PROGRESS NOTE PSYCH ---
Psych (Inpt) Progress Note Progress Note Treatment team (HERNANDEZ, RN, Group/Activity Therapy staff, and psychiatrist) discussed the Pt.'s progress, treatment plan, and aftercare plans. Vital Signs: Blood pressure this morning was 128/87 mmHg, pulse was 71/min., and temperature was 98.3F. Mental Status Examination: Brea reported that she still having difficulty sleeping at night because her roommate snores very loud and she reported that earplugs do not help. She remains flat and her affect and reported that her mood remains depressed. She perseverates about "not having any family left." She showed constricted to flat affect/no tearfulness today. Brea denied feeling hopeless or worthless, she denied wishing , and she denied thinking of suicide. She reported that she has improvement in energy and motivation "for a little bit " after taking methylphenidate. Brea was oriented to time, place, and person. She was coherent though somewhat perseverative. Her speech was neither pressured nor slurred. There were no abnormal movements. Brea denied thinking of violence or homicide, there were no delusions. She denied hallucinations. Chronic limitations in general fund of knowledge and information processing/executive dysfunction Assessment Update: Brea is a 46-year-old White Female who was admitted to the inpatient psychiatric unit on 08/08/2017 because of increased anxiety, hopelessness, and poor ADLs. Since her admission, Brea showed slow improvement in the following areas: better energy, better motivation, less hopelessness, and no thoughts of suicide. Diagnostic Update (08/12/2017); 1) Major Depressive Disorder 2) Generalized Anxiety Disorder 3) Learning Disability vs. Borderline Intellectual Functioning Urineray incontinence [place]'s disease, Hypothyroidism anemia Chronic Back pain Treatment Plan Update: Increase methylphenidate to 15 mg Q0800 & 1300 Change diazepam to 10 mg QHS Reduce/change Gabapentin to 1200 mg TID Continue Morphine Sulfate 15 mg BID Continue Oxybutinine 5 mg BID Continue Sertraline 150 mg daily Continue duloxetine 30 mg daily
[2017-08-19 08:19] VITALS: BP 128/87
[2017-08-19 12:13] VITALS: BP 112/74
[2017-08-19 16:26] VITALS: BP 117/87
--- NOTE | 2017-08-19 17:15 | SOCIAL WORKER PROG NOTE PSYCH ---
Social Work Progress Note Progress Note 11:45am: This ghost writer spoke with Chin at [facility]. He stated that the provide outpatient groups and medication management. Case management is not provided, however. He recommended [facility] ([phone]), [facility] ([phone]) or [facility] ([phone]). He stated that [facility] offers case management services. This ghost writer left for [facility] at 11:53am with call back number. This ghost writer met with patient. She described her mood as "my skin's crawling." She expressed concerns about medication changes and will speak with the psychiatrist about these concerns: "I want to get back on my benzo's." Patient was informed of the outpatient information provided by [facility]. She is agreeable to outpatient groups, individual therapy and medication management, but not IOP. She requested to wait until this ghost writer hears back from [facility] before calling other programs. Patient stated that her Luther's is being treated by Dr. Gottlieb and plans to follow up with her after discharge and she was seen by Dr. Gottlieb during this admission. She is also interested in a support group for family members of individuals with Alzheimers and Dementia. She maintains that she is not interested in a rest home at this time.
[2017-08-19 19:54] VITALS: BP 129/79
[2017-08-20 07:52] VITALS: BP 127/76
--- NOTE | 2017-08-20 08:01 | CP SOUTH PROGRESS NOTE PSYCH ---
Psych (Inpt) Progress Note Progress Note Treatment team (HERNANDEZ, RN, OTR/L & Therapy staff, Psychiatrist) discussed the Pt. 's progress, treatment plan, and aftercare plans. Nursing staff reported that Pt. has been more irritable and anxious (possibly because of increase in methylphenidate dose (?) ), she has been on Concerta for years but that is not on hospital's formulary Vital Signs: Date Time Temp Pulse B/P 08/20 0752 97.1 83 127/76 08/19 1954 98.9 87 129/79 Mental Status Examination: Brea complained about the snoring of her roommate, which is interfering with her ability to get a restful night sleep. She she did report that she has been feeling more irritable and anxious but she showed constricted to flat affect. Brea denied feeling hopeless or worthless today, she denied wishing , and she denied thinking of suicide. She she caused continues to report lack of interest as well as lack of pleasure in her daily life and did not seem to be excited about discharge tomorrow. She reported that the weekends do not make any difference because she does not do anything special on the weekends. Brea was oriented to time, place, and person. She was coherent though somewhat perseverative. Her speech was neither pressured nor slurred. She has limited vocabulary and this is seems to be related to limitation in her general fund of knowledge, may be learning disabilities and may be borderline intellectual functioning Brea denied thinking of violence or homicide, there were no delusions. She denied hallucinations. Assessment Update: Brea is a 46-year-old White Female who was admitted to Inpatient psych on 08/08/2017 because of increased anxiety, hopelessness, and poor ADLs. Since her admission, Brea showed minimal improvement in mood, motivation/drive or enrgy She is somewhat less hopeless and no thoughts of suicide. Diagnostic Update (08/20/2017): 1) Major Depressive Disorder 2) Generalized Anxiety Disorder 3) Dependent Personality Disorder 4) Borderline Intellectual Functioning Urineray incontinence [place]'s disease, Hypothyroidism anemia Chronic Back pain Treatment Plan Update: Increase Oxybutynin Chloride to 5 mg TID D/C methylphenidate (it is supected of increasing her irritability and anxiety) Continue diazepam 10 mg QHS Continue Gabapentin 1200 mg QHS Continue Morphine Sulfate 15 mg BID Continue Sertraline 150 mg daily Continue duloxetine 30 mg daily
--- NOTE | 2017-08-20 10:13 | Patient Discharge Instructions ---
Psych Discharge Inst General Discharge Information Reason for Admission: I am very anxious, I shake, I think I am helping withdrawals from the diazepam Psy Discharge Primary Diag+ General Anxiety Disorder, Depression Psy Discharge Secondary Diag+ Dependent Personality DO Summary Tests/Major Procedures There were no significant abnormalities in the patient's lab work Studies Pending at DC: None Patient Instructions Contact Information Your Psychiatrist on [facility] was Ezequiel Sow MD * If you are experiencing an emergency related to this hospitalization, please call [phone] to contact the treating psychiatrist or the psychiatrist-on- call. * To Request a copy of your medical records, please contact the Medical Records Department at [phone]. * To request results of studies pending at the time of discharge, please call [phone]. * Continue your Medications until directed to stop by your Healthcare provider. General Medication Information Please continue to take your new medications and your continued home medications , unless otherwise indicated on your discharge medication list, or unless directed by your MD or [employer] OPERATOR [employer]ULATION to stop them. Special Instructions Diet Regular Activity Normal - Tobacco Use Treatment Offered Post DC Medications Offered: Not Applicable Post DC Tobacco Treatment Plan: Not Applicable - EtOH/Drug Use D/O Treatment Offered Post DC Medications Offered: NA-No EtOH/Drug Use D/O Post DC EtOH/SubAbuse TX Plan: NA-No EtOH/Drug Use D/O Metabolic Screening ([X]) Not Applicable, patient not on a neuroleptic. Advance Directives Does the Patient have Medical Advance Directives No/Refused further info Does Pt have Psychiatric Advance Directives? No/Refused further info Does Patient have a Designated Surrogate Decision Maker: No Information About Psychiatric Advance Directives Provided? Refused Discharge Plan Post Hospital Treatment Plan: [facility] or [facility]
[2017-08-20 12:20] VITALS: BP 119/76
[2017-08-20 16:08] VITALS: BP 112/80
--- NOTE | 2017-08-20 16:27 | SOCIAL WORKER PROG NOTE PSYCH ---
Social Work Progress Note Progress Note This group underwriter met with patient. She is agreeable to discharging tomorrow and maintains that she is not interested in a rest home at this time. Patient described her mood as "anxious" however appears somewhat more upbeat than previous meetings. She denied SI/HI/AH/VH. Patient was still agreeable to a referral to [facility] and this group underwriter spoke with Anu Restrepo RN for this referral. Patient was accepted and assigned to Manuel Cardenas. This group underwriter contacted [facility]. They requested that the patient's demographics, initial assessment and medication list are faxed to Dr. Zhanna Lazo ([phone]), who will contact this group underwriter to schedule an intake appointment upon review. Fax confirmation sheet indicates that it was received at 4:40pm today. This group underwriter spoke with patient's cousin, Sinan regarding discharge. He will explore ride options for the patient from the hospital and contact this group underwriter.
[2017-08-20 20:16] VITALS: BP 120/79
--- NOTE | 2017-08-21 07:49 | CP SOUTH PROGRESS NOTE PSYCH ---
Psych (Inpt) Progress Note Progress Note Treatment team (HERNANDEZ, RN, OTR/L & Therapy staff, Psychiatrist) discussed the Pt. 's progress, treatment plan, and aftercare plans. Vital Signs: Blood pressure: 115/85 mmHg, pulse 76 bpm, temperature 97.6F Mental Status Examination: Brea continues to have difficulty with sleep because of the snoring of her roommate, She report that she felt less irritable and anxious today (which could be related to discontinuation of methylphenidate yesterday) She, however, continues to feel down and worried about the future and not having family to support her (which has been a consistent theme during her stay ). Showed constricted to flat affect. Brea denied feeling hopeless or worthless, she denied wishing , and she denied thinking of suicide. She continues to struggle with lack of interest and motivation. Brea was oriented to time, place, and person. She was coherent though somewhat perseverative. Her speech was neither pressured nor slurred. She has limited vocabulary and this is seems to be related to limitation in her general fund of knowledge, may be learning disabilities and may be borderline intellectual functioning Brea denied thinking of violence or homicide, there were no delusions. She denied hallucinations. Assessment Update: Brea is a 46-year-old White Female who was admitted to Inpatient Psych on 08/08/2017 because of increased anxiety, hopelessness, and poor ADLs. Since her admission, Brea showed minimal improvement in mood, motivation/drive or enrgy She is somewhat less hopeless and no thoughts of suicide. Diagnostic Update (08/20/2017): 1) Major Depressive Disorder 2) Generalized Anxiety Disorder 3) Dependent Personality Disorder 4) Borderline Intellectual Functioning Urineray incontinence [place]'s disease, Hypothyroidism anemia Chronic Back pain Treatment Plan Update: Discharge home with plans to follow up with the Department of mental health and addiction services provider in her catchment area (which could be [facility] in [place] or [facility]) please refer to the referrals section of the Discharge Summary and the ENGLISH LANGUAGE LEARNER TUTOR's notes for details Chronic Back pain Treatment Plan Update: Increase Oxybutynin Chloride to 5 mg TID D/C methylphenidate (it is supected of increasing her irritability and anxiety) Continue diazepam 10 mg QHS Continue Gabapentin 1200 mg QHS Continue Morphine Sulfate 15 mg BID Continue Sertraline 150 mg daily Continue duloxetine 30 mg daily ote:
[2017-08-21 07:52] VITALS: BP 115/85
[2017-08-21] MEDS ORDERED: NEURONTIN600 M1 PO (08:04)
[2017-08-21] MEDS ORDERED: MORPHINE SULFAT15 M3 PO (08:04)
[2017-08-21] MEDS ORDERED: NEURONTIN300 M1 PO (08:04)
[2017-08-21] MEDS ORDERED: ZOLOFT100 M1 PO (08:08)
[2017-08-21] MEDS ORDERED: LEVOTHYROXINE125 MCG PO (08:15)
[2017-08-21] MEDS ORDERED: DIAZEPAM5 M1 PO (08:15)
[2017-08-21] MEDS ORDERED: DITROPAN XL10 M1 PO (08:15)
[2017-08-21] MEDS ORDERED: HYDROCORTISONE10 M2 PO ×2 (08:15)
--- NOTE | 2017-08-21 08:33 | DISCHARGE SUMMARY REPORT-PSYCH ---
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 Course Complications: The patient did not have any complications while she was on the inpatient psychiatric unit. Consultations: Patient had a history and physical examination by the credit resolution representative. Please refer to the patient's electronic health record for the details of the H&P. Summary H&P (note by Mciheal Corbin MD, on 08/08/2017) Assessment: 46F PMH hypothyroidism, chronic fatigue syndrome, chronic back pain, adrenal insufficiency, opioid/benzo dependence & polysubstance abuse admitted to [facility] for anxiety and depression. TSH is slightly low without symptoms of thyrotoxicosis, with 5 years of urge incontinence. 1. Anxiety/depression 2. Hypothyroidism 3. Dallas's disease 4. Urge incontinence Plan - Management primarily by psychiatry - Will continue Synthroid at slightly reduced dose of 112mcg. This should be continued on discharge and her TSH should be followed up in 6 weeks - Please send full TFT's with next lab draw - May start Oxybutynin 5mg BID if no contraindications or interactions with psychiatry medications - Urology referral on discharge - Hydrocortisone 20mg qam and 10mg at 4pm - Ambulatory for DVT PPx Allergies: Coded Allergies: Penicillins (Intermediate, RASH 06/25/17) Hospital Course/TX Response: 08/08/2017: Dr. 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 Appropriate aftercare. The patient will see Dr. Godfrey next week 08/09/2017: We reviewed the endocrine consult, Dr. bose reduced hydrocortisone and she will follow up with the patient on a battery of tests ordered. The patient is in treatment with Dr. bose for adrenal insufficiency, hypothyroidism, Dallas's disease. We will continue present medication regimen, observation, symptom monitoring. The patient will be followed up daily by the unit psychiatrist. 08/10/2017: Dr. Marroquin's A&P: 46-year-old white female with depression, panic disorder, ADD, PTSD and opiate dependence currently unemployed. DDx delirium vs psychosis. Patient presenting with diazepam withdrawal, increased anxiety, isolation and hopelessness with poor ADLs. Medically complicated with incontinence, chronic back pain and Dallas's disease, hypothyroid and anemia, Dr Bose following for endocrine. Patient sedated from emergency medications at this time. -Maintain safety, 1:1 for safety, will continue CIWA and VSW q4h -pt running hypotensive, VS parameters placed on meds -Continue medications as above -endocrine following, hydrocorisone decreased yesterday to 20mg am and 5 mg 5pm, synthroid 0.125mg -TSH, free T4, TT3 trending improvement -monitor for signs of delirium, notify 08/11/2017: Treatment Plan Update: D/C 1:1 D/C CIWA D/C Propranolol PRN Reduce Duloxetine to 30 mg daily D/C Ativan Start Diazepam 15 mg tonight and 5 mg tomorrow at 8AM, then re-evaluate 08/12/2017: Treatment Plan Update: 1) Reduce Cymbalta to 30 mg daily 2) Reduce diazepam to 15 mg at bedtime 3) Add Gabapentin 400 mg TID 4) Reduce Tegretol to 100 mg BID 5) D/C Topamax Continue Sertraline 100 mg daily 08/13/2017: Treatment Plan Update: 1) Cymbalta to 30 mg daily 2) Continue diazepam 15 mg at bedtime 3) Change Gabapentin to 300 mg in AM, 300 mg around 2:00 Pm and 600 mg at bedtime 4) Reduce Tegretol to 100 mg BID 5) Continue Sertraline 100 mg daily 08/14/2017: Treatment Plan Update: change diazepam to 5 mg TID D/C Tegretol Increase Sertraline to 150 mg daily Add PRN Temazepam 08/15/2017: Patient seen by Dr. Ellis. No changes in the patient's medications were made. 08/16/2017: A/P: Pt with depression and anxiety now improved though with multiple somatic complints -Continue current medication regimen, added hydroxyzine PRN for anxiety -Encourage integration into the milieu - Monitor constipation closely, further meds or abx, if needed. 08/17/2017: Treatment Plan Update: Add Oxybutinine 5 mg BID Reduce Diazepam to 5 mg BID Start Methylphenidate 10 mg BID Continue all other medications unchanged 08/18/2017: Treatment Plan Update: D/C Hydroxyzine HCl PRN Reduce Morphine Sulfate to 15 mg BID D/C PRN Temazepam Increase Gabapentin to 600 mg TID Continue all other medications unchanged 08/19/2017: Increase methylphenidate to 15 mg Q0800 & 1300 Change diazepam to 10 mg QHS Reduce/change Gabapentin to 1200 mg TID Continue all other medications unchanged 08/20/2017: Increase Oxybutynin Chloride to 5 mg TID D/C methylphenidate (it is supected of increasing her irritability and anxiety) Continue all other medications unchanged 08/21/2017: Vital Signs: Blood pressure: 115/85 mmHg, pulse 76 bpm, temperature 97.6F Mental Status Examination: Brea continues to have difficulty with sleep because of the snoring of her roommate, She report that she felt less irritable and anxious today (which could be related to discontinuation of methylphenidate yesterday). She, however, continues to feel down and worried about the future and not having family to support her (which has been a consistent theme during her stay ). Showed constricted to flat affect. Brea denied feeling hopeless or worthless, she denied wishing , and she denied thinking of suicide. She continues to struggle with lack of interest and motivation. Brea was oriented to time, place, and person. She was coherent though somewhat perseverative. Her speech was neither pressured nor slurred. She has limited vocabulary and this is seems to be related to limitation in her general fund of knowledge, may be learning disabilities and may be borderline intellectual functioning Brea denied thinking of violence or homicide, there were no delusions. She denied hallucinations. Assessment Update: Brea is a 46-year-old White Female who was admitted to Inpatient Psych on 08/08/2017 because of increased anxiety, hopelessness, and poor ADLs. Since her admission, Brea showed minimal improvement in mood, motivation/drive or enrgy She is somewhat less hopeless and no thoughts of suicide. Diagnoses: 1) Major Depressive Disorder 2) Generalized Anxiety Disorder 3) Dependent Personality Disorder 4) Borderline Intellectual Functioning Urineray incontinence Dallas's disease; Hypothyroidism; anemia; Chronic Back pain Treatment Plan Update: Discharge home with plans to follow up with the Department of mental health and addiction services provider in her catchment area ([facility]) Discharge HBIPS - Tobacco Use Treatment Offered Post DC Medications Offered: Not Applicable Post DC Tobacco Treatment Plan: Not Applicable - EtOH/Drug Use D/O Treatment Offered Post DC Medications Offered: NA-No EtOH/Drug Use D/O Post DC EtOH/SubAbuse [place] Plan: NA-No EtOH/Drug Use D/O Metabolic Screening - Screen if on a Neuroleptic Medication - Metabolic screening should include: - Blood Pressure, BMI, Glucose or Hgb A1c, & a - Lipid profile from within the past 365 days. Metabolic Screening ([X]) Not Applicable, patient not on a neuroleptic. Discharge Instructions General Discharge Information Multiple Neuroleptics: ([X]) Not Applicable Discharge Diet Regular Discharge Activity Normal DC Disposition: Home Referrals Ordered Referrals Provider Referral 08/27/17 For Groups: Outpatient Psychiatry [facility] [address], [place] [phone] Intake appointment: , 08/27/17, at 9am with Zakiya Stevens LCSW Provider Referral 08/28/17 For Groups: Outpatient Psychiatry [facility] [address], [place] [phone] Psychiatrist appointment: 08/28/17, at 9[address] Dr[address] Vaughan Provider Referral For Groups: [facility]] [facility] [phone] Patient will be contacted with an appointment. Provider Referral For Groups: [[facility]] Manuel Cardenas [facility] [phone] Provider Referral 08/22/17 For Groups: [facility]] [facility] [phone] (visiting nurse) Services will resume on 08/22/17. [facility] provides weekly nursing services. Prescriptions Stop taking the following medications: Hydrocortisone (Hydrocortisone) 10 MG TABLET ORAL 1600 Cyclobenzaprine HCl (Cyclobenzaprine HCl) 10 MG TABLET ORAL EVERY SIX HOURS NEEDED as needed for back spasms Qty = 30 Morphine Sulfate (Morphine Sulfate) 15 MG TABLET ORAL 4 TIMES A DAY Qty = 60 Duloxetine HCl (Duloxetine HCl) 20 MG CAPSULE.DR ORAL DAILY Qty = 30 Sertraline HCl (Zoloft) 50 MG TABLET ORAL DAILY Qty = 30 Trazodone HCl (Trazodone HCl) 50 MG TABLET ORAL Every night Qty = 15 Diazepam (Valium) 5 MG TABLET ORAL SEE INSTRUCTIONS Qty = 75 Continue taking these medications: Levothyroxine Sodium (Levothyroxine Sodium) 125 MCG TABLET 1 Tablet ORAL DAILY BEFORE BREAKFAST Qty = 90 Comments: Last Taken:08/21/17 Time:07:24 This prescription has been renewed Start taking the following new medications: Morphine Sulfate (Morphine Sulfate ER) 15 MG TABLET.ER 15 Milligram ORAL TWICE DAILY Qty = 30 No Refills Comments: Last Taken:08/21/17 Time:08:19 Diazepam (Diazepam) 5 MG TABLET 10 Milligram ORAL AT BEDTIME Qty = 30 No Refills Comments: Last Taken:08/20/17 Time:21:21 Hydrocortisone (Hydrocortisone) 10 MG TABLET 5 Milligram ORAL DAILY Qty = 30 No Refills Comments: Last Taken:08/21/17 Time:15:53 Gabapentin (Neurontin) 300 MG CAPSULE 1 Capsule ORAL EVERY 8 HOURS as needed for anxiety Qty = 90 No Refills Gabapentin (Neurontin) 600 MG TABLET 2 Tablet ORAL AT BEDTIME Qty = 30 No Refills Comments: Last Taken:08/20/17 1200 mg PO given at this time. Time:21:20 Sertraline HCl (Zoloft) 100 MG TABLET 1.5 Tablet ORAL DAILY Qty = 45 No Refills Comments: Last Taken:08/21/17 Time:08:19 Oxybutynin Chloride (Ditropan XL) 10 MG TAB.ER.24 1 Tablet ORAL TWICE DAILY Qty = 60 No Refills Comments: Last Taken:08/21/17 Time:13:45 The following medications have been changed: Old: Hydrocortisone (Hydrocortisone) 10 MG TABLET 2 Tablet ORAL DAILY Qty = 100 New: Hydrocortisone (Hydrocortisone) 10 MG TABLET 2 Tablet ORAL DAILY Qty = 60 Comments: Last Taken:08/21/17 Time:08:19 Studies Pending at Discharge None Copies To: [facility]
[2017-08-21 12:03] VITALS: BP 124/79
--- NOTE | 2017-08-21 13:37 | SOCIAL WORKER PROG NOTE PSYCH ---
Social Work Progress Note Progress Note This poem writer met with patient. She was agreeable to discharge today and felt safe returning home. She was informed that Manuel from [facility] would follow up with her after discharge by phone, if they did not speak/meet before. Patient stated that she will call Dr. Gottlieb from home to schedule her next appointment. Patient described her mood as "anxious" and denied SI/HI/AH/VH. She identified a safety plan to call her aunt, her cousin and/or use the crisis numbers. She was accepting of the crisis numbers and warm lines upon discharge. Patient was informed that this poem writer is waiting to her from [facility] regarding the referral that was sent yesterday and that a vm had been left for them this morning (at 9:02am). Patient stated that she did not need any additional referrals or appointments to be made. This poem writer spoke nohemy Davidson at [facility] who has requested that this poem writer contact her once discharge plans are finalized. This poem writer spoke with Dr. Lazo at [facility] who stated that they would not accept the patient due to feeling that she needs IOP and concerns about withdrawing from [facility]. She recommended IOP at [facility]. This poem writer reviewed with Dr. Sow, who stated that the patient is not withdrawaing from [facility]. Patient is not agreeable to referrals to [facility] or attending an IOP. After reviewing with Min Baird LCSW, this poem writer discussed [facility] with the patient, which she was agreeable to as well as [facility] for medication management until she is able to find a medication provider closer to home. After discussing this plan with Dr. Sow, this poem writer spoke with Carmen Andrade with [facility]. She stated that she would be able to provide services to the [place] area, requested the referral is faxed to her and stated that the clinician would be in contact with this poem writer to schedule the appointment. Patient was agreeable to this plan and will be contacted on Thursday with an appointment. Client referral sheet, demographics page and LANCE for [facility] [place] were faxed to Carmen Andrade at [phone] at [phone] today. This poem writer spoke with Lety at [facility] regarding visiting nurse services. She stated that services would resume on 08/22/17 (weekly nursing). Per Dr. Sow, she was informed that Dr. Sow would sign the orders. Patient will meet with Manuel Cardenas from [facility] today prior to discharging. Manuel contacted this poem writer after meeting with the patietn. Patient appears ambivalent about continuing with [facility] services, however, accepted her business card. This poem writer received call from patient's cousin Sinan Vick, who will schedule an Uber ride home from the hospital today. He stated that there is food in the house and he will follow up with her tonight by phone to check in. This was relayed to the patient. He was informed of the discharge plans and did not have any concerns or safety concerns about her discharging today. He stated that he spoke with the patient yesterday by phone and "she sounded healthy." Faxed Referral(s) 1 Referred To: OPS Transition of Care Documents sent: Health Summary Faxed to: OPS Fax #: [phone] Faxed by: Vanessa Goss LCSW Date faxed: 08/21/17 Time Faxed: [phone] Faxed Referral(s) 2 Referred To: [facility] Documents sent: Health Summary Faxed to: [facility] Fax #: [phone] Faxed by: Vanessa Goss LCSW Date faxed: 08/21/17 Time Faxed: [phone] Faxed Referral(s) 3 Referred To: [facility] Care Documents sent: Health Summary, W10 Faxed to: [facility] Fax #: [phone] Faxed by: Vanessa Goss LCSW Date faxed: 08/21/17 Time Faxed: [phone] Comment: Ariana at [facility] confirmed receipt of fax
== END 2017-08-21 16:23 | DRG 881 ==
LOC: ERH 18:19 → CP SOUTH 08-08 10:15 → ERHI 08-08 10:15 → ENTRNSPT 08-08 11:01 → CP SOUTH 08-08 11:17 → EDTRNSPT 08-08 12:07 → EDTRNSPTSTS 08-08 12:07 → CMPTRNSPT 08-08 12:12 → CP SOUTH 08-11 15:33
PROVIDERS: Physician Assistant Medical
DX: F32.9 Major depressive disorder, single episode, unspecified (principal); F41.9 Anxiety disorder, unspecified
CPT/HCPCS: 80307; 81001; 87086; 96374; G0480; J2405; J3360; J3490